=== PATIENT | male | born 1935 | race Caucasian/White ===

== ENCOUNTER 2018-10-18 18:12 | Inpatient (IN) | payer OTHER ==
[~2018-10-18] VITALS: Ht 175.3 cm; Wt 129.0 kg
[2018-10-18 18:14] VITALS: BP 178/73
[2018-10-18 18:40] LABS: ABSOLUTE NEUTROPHILS 10.2 thou/uL (1.4-8.2); BASOPHILS 0.7 % (0.0-2.0); EOSINOPHILS 3.1 % (0.0-3.0); HEMATOCRIT 31.1 % (42.0-52.0); HEMOGLOBIN 10.5 gm/dL (14.0-18.0); LYMPHOCYTES 10.4 % (24.0-44.0); MCH 33.4 pg (26.0-34.0); MCHC 33.8 g/dL (28.0-37.0); MCV 98.9 fL (80.0-100.0); MONOCYTES 10.1 % (1.0-8.0); POLYS 75.7 % (36.0-66.0); RBC 3.15 mil/uL (4.50-6.00); RDW 14.4 % (10.5-14.5); WBC 17.9 thou/uL (4.0-11.0)
[2018-10-18] MEDS ORDERED: TYLENOL325 MG PO (18:40)
[2018-10-18] MEDS ORDERED: ASPIR 8181 MG PO (18:41)
[2018-10-18] MEDS ORDERED: BENADRYL ITCH28.3 GM TOP (18:41)
[2018-10-18] MEDS ORDERED: TUMS PO (18:41)
[2018-10-18] MEDS ORDERED: SYNTHROID100 MC1 PO (18:42)
[2018-10-18] MEDS ORDERED: RENVELA800 MG PO (18:42)
[2018-10-18] MEDS ORDERED: LASIX 80 MG TAB80 MG PO (18:42)
[2018-10-18] MEDS ORDERED: LANTUS SUBQ (18:42)
[2018-10-18] MEDS ORDERED: MIRALAX17 GM PO (18:42)
[2018-10-18] MEDS ORDERED: GABAPENTIN 100100 MG PO (18:42)
[2018-10-18] MEDS ORDERED: MIDODRINE HCL10 MG PO (18:42)
[2018-10-18] MEDS ORDERED: SENSIPAR 30 MG30 MG PO (18:43)
[2018-10-18] MEDS ORDERED: DOXYCYCLINE 10100 M1 PO (18:43)
[2018-10-18 19:02] LABS: APTT 23.8 Seconds (24.5-32.8); PROTIME 10.9 Seconds (9.3-11.4)
[2018-10-18 19:03] LABS: PLATELET COUNT 232 thou/uL (150-400)
[2018-10-18 19:49] VITALS: BP 146/78
[2018-10-18 20:08] LABS: CALCIUM 8.9 mg/dL (8.5-10.1); CREATININE 11.3 mg/dL (0.7-1.3); POTASSIUM 5.7 mmol/L (3.5-5.1)
[2018-10-18 20:17] LABS: ALBUMIN 3.1 g/dL (3.4-5.0); MAGNESIUM 2.4 mg/dL (1.8-2.4); TOTAL BILIRUBIN 0.3 mg/dL (<0.1-1.0); TOTAL PROTEIN 7.5 g/dL (6.4-8.2); TROPONIN-I 0.53 ng/mL (<0.06)
--- NOTE | 2018-10-18 20:17 | EKG ---
[place] [address] [facility] [place] [address] ELECTROCARDIOGRAM REPORT Name: MAIA OLMEDO Room #: REG LEANDER Jain#: [id number] Admission: 10/18/18 Attend Phys: Discharge: Date of : 37 Report #: [id number] THIS REPORT FOR: //name// [facility] ED Test Date: 2018-10-18 Test Time: 18:39:54 Pat Name: MAIA OLMEDO Department: Room: Gender: M Almond Huller: hoa : 1935 Requested By: Ck Graham Order Number: [id number] MD: Colby Medina Measurements Intervals [place] Rate: 88 P: 229 MD: 206 QRS: -50 QRSD: 163 T: 120 QT: 408 QTc: 494 Interpretive Statements Sinus or ectopic atrial rhythm Left bundle branch block No previous ECG available for comparison Electronically Signed On 10-18-2018 20:17:05 RELIGIOUS EDUCATION TEACHER by Colby Medina [email or web address] <ELECTRONICALLY SIGNED> By: Colby Medina MD 10/18/182016 1839 1839 Colby Medina MD /JOSHUA
--- NOTE | 2018-10-18 20:24 | NUR ---
PHYSICIAN AT BEDSIDE FOR RE-EVALUATION
[2018-10-18 21:12] VITALS: BP 142/67
[2018-10-18 21:31] VITALS: BP 131/62
[2018-10-19] VITALS (7 sets, daily range): BP systolic 107–172; BP diastolic 32–84
[2018-10-19 00:32] LABS: HEMATOCRIT 26.5 % (42.0-52.0); MCH 33.6 pg (26.0-34.0); MCHC 34.1 g/dL (28.0-37.0); MCV 98.7 fL (80.0-100.0); RBC 2.68 mil/uL (4.50-6.00); RDW 14.3 % (10.5-14.5)
[2018-10-19 00:50] LABS: CALCIUM 8.3 mg/dL (8.5-10.1); CREATININE 11.4 mg/dL (0.7-1.3); MAGNESIUM 2.5 mg/dL (1.8-2.4)
[2018-10-19 00:52] LABS: POTASSIUM 6.2 mmol/L (3.5-5.1)
[2018-10-19 03:55] LABS: URINE COLOR YELLOW
[2018-10-19 03:56] LABS: URINE CLARITY HAZY; URINE PROTEIN (DIPSTICK) 2+ (Negative)
[2018-10-19 03:57] LABS: URINE BILIRUBIN NEGATIVE (Negative); URINE BLOOD 2+ (Negative); URINE GLUCOSE-RANDOM* 1+ (Negative); URINE KETONES NEGATIVE (Negative); URINE LEUKOCYTES-REFLEX 3+ (Negative); URINE NITRITE-REFLEX NEGATIVE (Negative); URINE UROBILINOGEN 0.2 E.U./dl (0.2-1.0)
[2018-10-19 04:00] LABS: SQUAMOUS 4-10 Moderate /LPF (0-3)
[2018-10-19 04:01] LABS: BACTERIA-REFLEX >30 Many /HPF (None Seen); CASTS None Seen /LPF (None Seen); CRYSTALS None Seen /LPF (None Seen); MUCUS 0-3 Light strn/LPF (None Seen); URINE RBC 3-10 Few /HPF (0-2); URINE WBC-REFLEX >25 Many /HPF (0-5); WBC CLUMPS Packed (None Seen)
--- NOTE | 2018-10-19 09:12 | NUR ---
ASSUME CARE 1900. PT/VITALS STABLE. DENIES ANY PAIN. POOR TOLERANCE TO ACTIVITY. INCONTINET OF URINE. FORGETFUL AND VERY PPOOR HISTORIAN. ASSESSMENT CHARTED. PROGRESSING MODERATELY WITH POC. SR ON MONITOR. STRAIGHT CATH PATIENT FOR URINE SAMPLE. URINE EXTREMELY CLOUDY AND AND MILK LOOKING. THICK YELLOW SPOUTUM NOTED WITH GOOD COUGH EFFORT. PLAN IS CONTINUE TO TREAT WITH ABX AND BREATHING TX. CONTINUE DIALYSIS AND DIURESING PT. WILL CONTINUE TO MONITOR AND FOLLOW WITH POC
--- NOTE | 2018-10-19 14:56 | 2DMMODE ---
[facility] [address] [place] [address] 2 D/M-MODE ECHOCARDIOGRAM Name: MAIA OLMEDO Room #: 201-P ADM IN M.R.#: [id number] Admission: 10/18/18 Attend Phys: Holland Castillo MD Discharge: Date of : 37 Date of Service: 10/19/18 1456 Report #: [id number] THIS REPORT FOR: //name// APPROVED REPORT Study performed: 10/19/2018 11:10:19 EXAM: Comprehensive 2D, Doppler, and color-flow Echocardiogram Patient Location: Bedside Room #: 201 Status: routine BSA: 2.36 HR: 75 bpm BP: 150/71 mmHg Rhythm: NSR Other Information Study Quality: Adequate Indications Congestive Heart Failure Diabetes Dyspnea Elevated Troponin Hypertension/HDD TAVR Echo Enhancing Agent Indication: Endocardial border delineation Agent(s) / Amount(s) Used: Optison 3 cc 2D Dimensions RVDd: 45.80 mm IVSd: 12.63 (7-11mm) LVOT Diam: 21.59 (18-24mm) LVDd: 59.37 mm PWd: 13.82 (7-11mm) Ascending Ao: 40.81 (22-36mm) LVDs: 50.81 (25-40mm) Aortic Root: 36.38 mm IVC: 30.00 mm Volumes Left Atrial Volume (Systole) Single Plane 4CH: 77.68 mL Aortic Valve AoV Peak Lester.: 3.63 m/s AO Peak Gr.: 52.62 mmHg LVOT Max P.82 mmHg [facility] [address] [place] [address] 2 D/M-MODE ECHOCARDIOGRAM Name: MAIA OLMEDO Room #: 201-P ADM IN M.R.#: [id number] Admission: 10/18/18 Attend Phys: Holland Castillo MD Discharge: Date of : 37 Date of Service: 10/19/18 1456 Report #: [id number] Mean Gr.: 30.00 mmHg LVOT Mean P.78 mmHg AO V2 Mean: 2.59 m/s LVOT Max V: 0.98 m/s AO V2 VTI: 83.61 cm LVOT Mean V: 0.61 m/s HARSHA (VTI): 0.97 cm2 LVOT V1 VTI: 22.14 cm HARSHA Vmax: 0.99 cm2 SV (LVOT): 81.04 mL Mitral Valve E/A Ratio: 0.7 MV Decel. Time: 122.04 ms MV E Max Lester.: 1.12 m/s MV A Lester.: 1.72 m/s MV PHT: 35.39 ms IVRT: 124.57 ms Pulmonary Valve PV Peak Lester.: 0.92 m/s PV Peak Gr.: 3.43 mmHg Pulmonary Vein P Vein S: 0.40 m/s P Vein A: 0.34 m/s P Vein D: 0.31 m/s P Vein A Dur.: 152.2 msec P Vein S/D Ratio: 1.29 Tricuspid Valve TR Peak Lester.: 3.89 m/s TR Peak Gr.: 60.59 mmHg PA Pressure: 70.00 mmHg Left Ventricle Left ventricle is dilated. There is global hypokinesis of the left ventricle. Mild concentric left ventricular hypertrophy. Left ventricular ejection fraction is moderately decreased. LVEF is 30-35%. Grade I - abnormal relaxation pattern. Right Ventricle Right ventricle is dilated. Right ventricle is hypokinetic. Atria Left atrium is dilated. Right atrium is dilated. Aortic Valve TAVR No aortic regurgitation is present. Moderate aortic stenosis. Mitral Valve The mitral valve is normal in structure. There is no mitral valve regurgitation [facility] [address] [place] [address] 2 D/M-MODE ECHOCARDIOGRAM Name: MAIA OLMEDO Room #: 201-P ADM IN M.R.#: [id number] Admission: 10/18/18 Attend Phys: Holland Castillo MD Discharge: Date of : 37 Date of Service: 10/19/18 1456 Report #: [id number] noted. No evidence of mitral valve stenosis. Tricuspid Valve The tricuspid valve is normal in structure. There is mild tricuspid regurgitation. Estimated PAP 70 mmHg. There is severe pulmonary hypertension. Pulmonic Valve The pulmonary valve is normal in structure. Trace pulmonic regurgitation. Great Vessels The aortic root is normal in size. IVC is dilated and collapses <50% with inspiration. Pericardium There is no pericardial effusion. <Conclusion> Left ventricle is dilated. There is global hypokinesis with segmental regions of more prominent wall motion abnormalities of the left ventricle. LVEF is 30-35%. Right ventricle is dilated. Right ventricle is hypokinetic. Left atrium is dilated. Right atrium is dilated. TAVR Moderate aortic stenosis. The mitral valve is normal in structure. The tricuspid valve is normal in structure. There is mild tricuspid regurgitation. Estimated PAP 70 mmHg. There is severe pulmonary hypertension. The pulmonary valve is normal in structure. Trace pulmonic regurgitation. There is no pericardial effusion. <ELECTRONICALLY SIGNED> By: Timur Fletcher MD 10/19/18 1456 1456 1456 Timur Fletcher MD /INF
--- NOTE | 2018-10-19 15:32 | NUR ---
met with patient who is A/Ox4. He resides ltc at [facility]. Plan return once stable. He dializes at [facility] located in [facility]. He does not wear oxygen but currently rec. Patient reports son in [place] and sister emergency contact. He reports they are aware he is in hospital. Plan to update [facility].
--- NOTE | 2018-10-19 20:33 | NUR ---
ASSUMED CARE OF PT AT 0700. PT A&OX4, BEDREST. USES WHEELCHAIR AT HOME. VITALS WNL WITH EXCEPTION ON ONE TIME HIGH BLOOD PRESSURE. PT IS SINUS RHYTHM ON TELEMETRY WITH 1D, BBB. PT OXYGEN TITRATED TO 1L AND PT SATS >90%. PT HAS CRACKLES IN BASES OF LUNGS AND PUT ON 2000ML FLUID RESTRICTION BY CARDIOLOGY. PT HAD DIALYSIS TODAY AND STATED HE DID'T FEEL WELL BUT COULD NOT STATE IF HE HAD PAIN OR NAUSEA. PT STATED HE ALWAYS FEELS BAD AFTER DIALYSIS. WILL CONT WITH POC.
[2018-10-20 03:55] VITALS: BP 103/69
--- NOTE | 2018-10-20 05:07 | NUR ---
PT. SHAKING; FACE FLUSHED; C/O GENERAL MALAISE; VS WNL; POST DIALYSIS; BG 155; HR BETWEEN 60-100; ST. IT IS A REGULAR REACTION POST DIALYSIS; ABLE TO TAKE MEDICATION; REPOSITIONED; MONITOR Q1H; AFTER MIDNIGHT PT. ABLE TO REST WITH EYES CLOSED; AT 3:[address] "I AM FEELING SO MUCH BETTER"; REQUESTED PRN PAIN MEDICATION DUE TO HEADACHE; RE-POSITIONED; POST-ASSESSMENT PT SLEEPING; ASSESSMENT CHARGED; FOLLOWING POC. REFUSED O2 DURING THE NIGHT. .
[2018-10-20 06:59] VITALS: BP 119/78
[2018-10-20 08:42] LABS: CALCIUM 8.7 mg/dL (8.5-10.1); PHOSPHORUS 5.8 mg/dL (2.5-4.9); POTASSIUM 5.4 mmol/L (3.5-5.1)
[2018-10-20 08:43] LABS: CREATININE 7.4 mg/dL (0.7-1.3)
[2018-10-20 11:04] VITALS: BP 140/54
--- NOTE | 2018-10-20 13:24 | NUR ---
PT. RESIDES AT [facility]. FAXED CLINICAL UPDATE TO FACILITY AND SPOKE WITH WILBERT IN ADM. SHE RECEIVED UPDATE. DCP TO FOLLOW.
[2018-10-20 15:34] VITALS: BP 122/75
--- NOTE | 2018-10-20 16:58 | NUR ---
ASSESSMENT CHARTED - MEDS PER NOV - PT WITH CO'S OF UPSET STOMACH - GIVEN ZOFRAN PO. PT AMY DIET AND FLUIDS. PT HAS RESTING IN BED FOR THE DAY. INCONTINENT OF STOOL IN BED DUE TO NOT WANTING TO SIT ON THE BEDPAN. CHECKED WITH MED RECORDS AT 1530 - REQUESTED INFORMATION FROM [facility] STILL NOT ARRIVED. PT TO HAVE DILAYSIS IN THE AM. NO CO'S OF PAIN - APPEARS TO BE RESTING COMFORTABLY AT THE PRESENT TIME.
[2018-10-20 20:15] VITALS: BP 119/48
[2018-10-21 04:55] VITALS: BP 126/71
[2018-10-21 05:24] LABS: HEMATOCRIT 30.1 % (42.0-52.0); MCH 33.1 pg (26.0-34.0); MCHC 33.3 g/dL (28.0-37.0); MCV 99.3 fL (80.0-100.0); RBC 3.03 mil/uL (4.50-6.00); RDW 14.6 % (10.5-14.5); WBC 10.5 thou/uL (4.0-11.0)
[2018-10-21 05:39] LABS: CALCIUM 8.3 mg/dL (8.5-10.1); MAGNESIUM 2.6 mg/dL (1.8-2.4)
[2018-10-21 06:01] LABS: CREATININE 9.3 mg/dL (0.7-1.3)
[2018-10-21 06:05] LABS: POTASSIUM 7.3 mmol/L (3.5-5.1); TROPONIN-I 6.84 ng/mL (<0.06)
--- NOTE | 2018-10-21 07:52 | NUR ---
PT. AOX4 DURING THE NIGHT; C/O N/V/ PAIN OVER HANDS AND SOME GI REFLUX; HX OF ARTHRITIS; MATERIAL ASSISTANT NOTIFIED; ORDERS TAKEN; LOOSE BMX2 THROUGH THE NIGHT; NOT ABLE TO CONTROL IT; MATERIAL ASSISTANT NOTIFIED; PROTOCOL FOLLOWED; STOOL SAMPLE TAKEN; CONTACT ISOLATION ON PLACE. TROPONIN AND POTASSIUM ELEVATED; MATERIAL ASSISTANT NOTIFIED; MONITORING; ABLE TO REST A FEW HOURS DURING THE NIGHT; PASSED ON REPORT; ASSESSMENT CHARGED; FOLLOWING POC;
[2018-10-21 07:57] VITALS: BP 110/59
[2018-10-21 12:20] VITALS: BP 135/70
--- NOTE | 2018-10-21 17:12 | NUR ---
ASSESSMENT CHARTED - MEDS PER NOV - NO CO'S OF PAIN OR NAUSEA. AMY DIET AND FLUIDS. PT WITH LARGE LIQUID BM - FILLED ENTIRE BED- PATIENT UNABLE TO TELL THAT HE HAD MOVED HIS BOWELS. ACCUCHECKS CHARTED - PT WITH ELEVATED K+ THIS AM - GIVEN GLUCOSE/ INUSLIN ORDERED. DIALYSIS TODAY 3 LITRES REMOVED. NO CO'S AT THE PRESENT TIME.
[2018-10-21 17:45] VITALS: BP 154/104
[2018-10-21 19:26] VITALS: BP 102/46
--- NOTE | 2018-10-22 04:10 | NUR ---
ASSUMED CARE OF PATIENT AROUND 1900. PATIENT ORIENTED TO PERSON AND TIME AND IS FORGETFUL. PATIENT WANTING STAFF TO DO SMALL TASKS FOR HIM, EDUCATED PATIENT ON HIS ABILITIES AND EXPECTATIONS THAT HE ATTEMPTS TO DO MUCH FOR HIMSELF HE CAN AND THAT STAFF IS HERE TO ASSIST IF NEEDED, NOT FOR CHANGING THE CHANNEL WHEN PATIENT IS CAPABLE. PATIENT HAD LOOSE STOOL IN BED. PATIENT CLEANED UP. C/O WHEEZING. ASSESSMENT DID NOT REVEAL ANY WHEEZING. O2 SAT WNL. HAD PATIENT COUGH AND DEEP BREATHE. PATIENT REPORTS FEELING THAT WHEEZING HAS CLEARED UP. -CDIFF RESULTS NOTED. PATIENT IS PROGRESSING TOWARD GOALS, WILL CONTINUE TO MONITOR.
[2018-10-22 05:10] VITALS: BP 110/50; BP 140/81
[2018-10-22 05:43] LABS: CALCIUM 8.6 mg/dL (8.5-10.1); MAGNESIUM 2.5 mg/dL (1.8-2.4)
[2018-10-22 05:52] LABS: CREATININE 6.3 mg/dL (0.7-1.3); POTASSIUM 4.5 mmol/L (3.5-5.1)
[2018-10-22 07:05] VITALS: BP 111/68
[2018-10-22 11:10] VITALS: BP 117/60
[2018-10-22 15:45] VITALS: BP 114/58
--- NOTE | 2018-10-22 16:55 | NUR ---
ASSESSMENT CHARTED - MEDS PER NOV - GIVEN TYLENOL FOR CO'S OF PAIN IN HANDS THIS AFTERNOON. AMY DIET AND FLUIDS. ACCUCHECKS CHARTED - NO CO'S OF NAUSEA. PT WITH 1 MOD LIQUID STOOL THIS AM IN THE BEDPAN. PT TO HAVE CHEST XRAY IN THE AM - BARRIER CREAM APPLIED TO BUTTOCKS AND PATIENT ENCOURAGED TO KEEP TURNED DID LAY ON SIDE FOR A SHORT WHILE AND HAS OTHERWISE REFUSED. NO CO'S AT THE PRESENT TIME.
[2018-10-22 20:15] VITALS: BP 103/47
--- NOTE | 2018-10-23 04:39 | NUR ---
ASSUMED OT CARE AT 190O. VSS. PT A&0X4. ASSESSMENTS AND MEDS GIVEN ARE DOCUMENTED. PT'S MAJOR COMPLAINTS TONIGHT WERE HIS COUGH AND THE ARTHRITIC PAIN IN HIS HANDS. PRN COUGH MED AND TYLENOL GIVEN RESPECTIVELY. PT IS STABLE, NO FURTHER COMPLAINTS, NEITHER WAS IN IN ANY APPARENT DISTRESS AT ANY POINT DURING THE NIGHT. WILL CONTINUE TO MONITOR PER POC.
[2018-10-23 04:45] VITALS: BP 110/54; BP 152/83
[2018-10-23 05:58] LABS: ALBUMIN 2.7 g/dL (3.4-5.0); CALCIUM 8.2 mg/dL (8.5-10.1); PHOSPHORUS 8.9 mg/dL (2.5-4.9); POTASSIUM 4.9 mmol/L (3.5-5.1)
[2018-10-23 05:59] LABS: CREATININE 8.6 mg/dL (0.7-1.3)
[2018-10-23 07:15] VITALS: BP 133/69
--- NOTE | 2018-10-23 10:36 | NUR ---
PATIENT HAS STAYED IN BED THROUGH THE MORNING. USES BEDPAN FOR B/BLADDER. HE DENIES PAIN AT THIS TIME STATING MEDS GIVEN THIS AM FOR PAIN WAS EFFECTIVE. RESPIRATION NON LABORED. WILL HAVE DIALYSIS TOMORROW. WILL CONT WITH PLAN OF CARE.
[2018-10-23 11:25] VITALS: BP 136/65
[2018-10-23 15:35] VITALS: BP 134/65
[2018-10-23 19:22] VITALS: BP 125/53
--- NOTE | 2018-10-24 03:36 | NUR ---
PT ALERT AND ORIENTED. DENIES SOB, OR CHEST PAIN. C/O OF ARTHRITIC PAIN IN BOTH HANDS, ALLEVIATED WITH TYLENOL. PRODUCTIVE COUGH , WITH WHEEZING NOTED. RECEIVING BREATHING TREATMENTS. IV LEFT HAND REMOVED DUE TO LEAKAGE. INCONTINENT OF BM, NO DIARRHEA. WILL CONTINUE TO FOLLOW POC.
[2018-10-24 06:27] VITALS: BP 146/67
[2018-10-24 08:12] VITALS: BP 141/64
[2018-10-24 08:40] VITALS: BP 146/67
--- NOTE | 2018-10-24 10:21 | NUR ---
Assess due to high BMI. Pt from care home care. Currently on dialysis, sleeping. Hx noncompliance with diet, medications. Has renal diet order. BMI 42 extreme class III obesity. Ate well. Available if pt with diet questions, otherwise low nutrition risk
[2018-10-24] MEDS ORDERED: IPRAT-ALBUT 0.5-3 ML INH (11:25)
[2018-10-24] MEDS ORDERED: NOVOLOG100 UNIT/1 SUBQ (11:25)
[2018-10-24] MEDS ORDERED: CALTRATE-600 W1 EACH PO (11:25)
[2018-10-24] MEDS ORDERED: CARVEDILOL12.5 MG PO (11:25)
[2018-10-24] MEDS ORDERED: LEVAQUIN 500 M500 M1 PO (11:25)
[2018-10-24] MEDS ORDERED: LOPERAMIDE 2 MG2 M1 PO (11:25)
[2018-10-24] MEDS ORDERED: BENZONATATE100 MG PO (11:25)
[2018-10-24] MEDS ORDERED: CEPACOL SORE T1 EAC7 PO (11:25)
--- NOTE | 2018-10-24 13:15 | NUR ---
PT. DISCHARGING TODAY TO [facility]. FAXED DC ORDERS/SUMMARY TO FACILITY AND SPOKE WITH WILBERT IN ADM. SHE RECEIVED DC ORDERS. SHE ARRANGED TRANSPORTATION VIA [facility] FOR [id number]. PT. NOTIFIEID OF TIME OF TRANSPORT. UNIT NOTIFIED AND CHART COPY PER US. RN TO CALL REPORT TO [phone].
--- NOTE | 2018-10-26 09:41 | HC ---
[facility] [place] [address] [place] [address] CONSULTATION Name: MAIA OLMEDO Room #: 201-P [facility] IN M.R.#: [id number] Admission: 10/18/18 Attend Phys: Holland Castillo MD Discharge: 10/24/18 Date of : 37 Report #: [id number] THIS REPORT FOR: //name// CC: Nicole Castillo REASON FOR CONSULTATION: End-stage renal disease. REASON FOR PRESENTATION: Shortness of breath and fever. HISTORY OF PRESENT ILLNESS: An 83-year-old with past medical history of end-stage renal disease, used to go to [facility]. He is not really sure what caused his kidney problems. He is known to have hypertension. He is also known to have diabetes. He has been maintained on dialysis every Wednesday, Wednesday and Wednesday utilizing a right AV fistula. He resides at a nursing facility. He reported to productive cough and body aches along with fever reported in his nursing facility. No previous similar episodes. No fever during his hospital stay here. He had some vascular congestion on his chest x-ray and is supposed to be dialyzing today. I am being consulted to manage his end-stage renal disease. He missed his dialysis on Wednesday. PAST MEDICAL HISTORY: 1. Diabetes mellitus. 2. Hypertension. 3. Valvular heart disease, post TAVR. 4. AV fistula. ALLERGIES: CEPHALEXIN, TETANUS AND DIPHTHERIA TOXOID. SOCIAL HISTORY: No drug or alcohol abuse. MEDICATIONS: 1. Aspirin. 2. Gabapentin. 3. Renvela. 4. Cinacalcet. 5. Levothyroxine. 6. Midodrine. REVIEW OF SYSTEMS: GENERAL: Significant for subjective fever. CHEST: Decreased air entry bilaterally with crackles. CARDIOVASCULAR: No rub. ABDOMEN: Soft, nontender. LOWER EXTREMITIES: +3 edema. LABORATORY DATA: Reviewed. Hemoglobin is 9, potassium was 6.[address] [facility] [address] [place] [address] CONSULTATION Name: MAIA OLMEDO Room #: 201-P [facility] IN [place].#: [id number] Admission: 10/18/18 Attend Phys: Holland Castillo MD Discharge: 10/24/18 Date of : 37 Report #: [id number] to 5.5. Chest x-ray with no acute changes. ASSESSMENT, IMPRESSION AND PLAN: 1. End-stage renal disease. 2. Leukocytosis. 3. Fever. 4. Post transcatheter aortic valve replacement procedure. 5. We will arrange for the patient to have his usual hemodialysis with aggressive ultrafiltration. 6. Resume his outpatient medications including his diabetes mellitus and hypertension medication. <ELECTRONICALLY SIGNED> By: Sudheer Garza MD 10/26/18 0941 0924 1049 Sudheer Garza MD /nt
== END 2018-10-24 15:25 | DRG 871 ==
LOC: ER 18:12 → 2N 20:30 → EROBS 20:30 → 2N 21:14
PROVIDERS: Emergency Medicine; Internal Medicine Nephrology; Nurse Practitioner Acute Care; Nurse Practitioner Adult Health; ADMIT Internal Medicine
PROC: 5A1D70Z Performance of Urinary Filtration, Intermittent, Less than 6 Hours Per Day (ICD-10-PCS; principal; 2018-10-19)
PROC: 5A1D70Z Performance of Urinary Filtration, Intermittent, Less than 6 Hours Per Day (ICD-10-PCS; 2018-10-21)
PROC: 5A1D70Z Performance of Urinary Filtration, Intermittent, Less than 6 Hours Per Day (ICD-10-PCS; 2018-10-24)
DX: A41.9 Sepsis, unspecified organism (principal); I50.43 Acute on chronic combined systolic (congestive) and diastolic (congestive) heart failure; I21.4 Non-ST elevation (NSTEMI) myocardial infarction; N18.6 End stage renal disease; J18.9 Pneumonia, unspecified organism; J96.01 Acute respiratory failure with hypoxia; I13.2 Hypertensive heart and chronic kidney disease with heart failure and with stage 5 chronic kidney disease, or end stage renal disease; N39.0 Urinary tract infection, site not specified; Z68.41 Body mass index [BMI] 40.0-44.9, adult; I42.0 Dilated cardiomyopathy; E87.5 Hyperkalemia; E11.22 Type 2 diabetes mellitus with diabetic chronic kidney disease; E03.9 Hypothyroidism, unspecified; E11.51 Type 2 diabetes mellitus with diabetic peripheral angiopathy without gangrene; E78.5 Hyperlipidemia, unspecified; E11.42 Type 2 diabetes mellitus with diabetic polyneuropathy; Z96.653 Presence of artificial knee joint, bilateral; D64.9 Anemia, unspecified; I77.1 Stricture of artery; I95.1 Orthostatic hypotension; E66.01 Morbid (severe) obesity due to excess calories; M62.84 Sarcopenia; E87.70 Fluid overload, unspecified; E88.9 Metabolic disorder, unspecified; Z99.3 Dependence on wheelchair; Z88.7 Allergy status to serum and vaccine; Z88.8 Allergy status to other drugs, medicaments and biological substances; Z90.49 Acquired absence of other specified parts of digestive tract; Z91.14 Patient's other noncompliance with medication regimen; Z82.49 Family history of ischemic heart disease and other diseases of the circulatory system
CPT/HCPCS: 10081; 32100

== ENCOUNTER 2018-10-31 01:08 | Inpatient (IN) | payer OTHER ==
[~2018-10-31] VITALS: Ht 177.8 cm; Wt 125.1 kg
[2018-10-31] VITALS (9 sets, daily range): BP systolic 108–169; BP diastolic 47–88
[~2018-10-31 01:08] MED LIST: ASPIR 8181 MG PO; BENADRYL ITCH28.3 GM TOP; BENZONATATE100 MG PO; CALTRATE-600 W1 EACH PO; CARVEDILOL12.5 MG PO; CEPACOL SORE T1 EAC7 PO; DOXYCYCLINE 10100 M1 PO; GABAPENTIN 100100 MG PO; IPRAT-ALBUT 0.5-3 ML INH; LANTUS SUBQ; LASIX 80 MG TAB80 MG PO; LEVAQUIN 500 M500 M1 PO; LOPERAMIDE 2 MG2 M1 PO; MIDODRINE HCL10 MG PO; MIRALAX17 GM PO; NOVOLOG100 UNIT/1 SUBQ; RENVELA800 MG PO; SENSIPAR 30 MG30 MG PO; SYNTHROID100 MC1 PO; TUMS PO; TYLENOL325 MG PO
[2018-10-31] MEDS ORDERED: BENADRYL ITCH28.3 GM (01:28)
[2018-10-31] MEDS ORDERED: CALCIUM ACETAT667 MG PO (01:30)
[2018-10-31] MEDS ORDERED: ROBITUSSIN100 MG/53 PO (01:32)
[2018-10-31 01:34] LABS: BE(vivo) -3.2 mmol/L (-2 to +3); HCO3 22.7 mmol/L (22.0-26.0); PCO2 44.5 mmHg (35.0-45.0); PO2 91.4 mmHg (80.0-100.0); pH 7.326 (7.360-7.450); sO2 96.4 % (92.0-98.0)
[2018-10-31] MEDS ORDERED: LIDOCAINE VISC100 ML (01:35)
[2018-10-31 01:38] LABS: ABSOLUTE NEUTROPHILS 15.3 thou/uL (1.4-8.2); BASOPHILS 0.5 % (0.0-2.0); EOSINOPHILS 2.6 % (0.0-3.0); HEMATOCRIT 32.3 % (42.0-52.0); HEMOGLOBIN 10.6 gm/dL (14.0-18.0); LYMPHOCYTES 7.5 % (24.0-44.0); MCH 32.9 pg (26.0-34.0); MCHC 32.9 g/dL (28.0-37.0); MONOCYTES 5.8 % (1.0-8.0); PLATELET COUNT 296 thou/uL (150-400); POLYS 83.6 % (36.0-66.0); RBC 3.23 mil/uL (4.50-6.00); WBC 18.3 thou/uL (4.0-11.0)
[2018-10-31] MEDS ORDERED: MURINE EAR DROP15 ML OTIC (01:38)
[2018-10-31 01:43] LABS: CALCIUM 9.7 mg/dL (8.5-10.1)
[2018-10-31 01:52] LABS: ALBUMIN 3.2 g/dL (3.4-5.0); TOTAL BILIRUBIN 0.5 mg/dL (<0.1-1.0); TOTAL PROTEIN 7.8 g/dL (6.4-8.2); TROPONIN-I 0.12 ng/mL (<0.06)
--- NOTE | 2018-10-31 02:08 | NUR ---
PT REMOVED DENTURES AND PLACED THEM IN LABLED CUP W/ BELONGINGS
[2018-10-31] MEDS ORDERED: DOXYCYCLINE 10100 MG PO (04:42)
--- NOTE | 2018-10-31 04:59 | NUR ---
PT ADMITED FROM ED AROUND 0300 SOA/PNA. VSS. ASSESSMENT CHARTED. PT DENIES ANY CONCERNS. BIPAP IN PLACE PER RT. ABX RUNNING PER EMAR. ESRD DIALYSIS M,W,F. WILL CONTINUE TO MONITOR AND WITH POC.
--- NOTE | 2018-10-31 08:44 | EKG ---
[address] [place] [address] ELECTROCARDIOGRAM REPORT Name: MAIA OLMEDO Room #: 215-P ADM IN M.R.#: [id number] Admission: 10/31/18 Attend Phys: Rosana Banerjee MD Discharge: Date of : 36 Report #: [id number] THIS REPORT FOR: //name// [facility] ED Test Date: 2018-10-31 Test Time: 01:16:08 Pat Name: MAIA OLMEDO Department: Room: 215 Gender: M Leather Flesher: BELINDA : 1935 Requested By: Natacha Hardwick Order Number: [id number] MD: George Ramirez Measurements Intervals [place] Rate: 100 P: DE: QRS: -32 QRSD: 165 T: 99 QT: 480 QTc: 620 Interpretive Statements Probable sinus tachycardia with first-degree AV block Left bundle branch block Compared to ECG 10/18/2018 18:39:54 No significant change was found Electronically Signed On 10-31-2018 8:44:48 UNIT EDUCATOR by George Ramirez [email or web address] <ELECTRONICALLY SIGNED> By: George Ramirez MD, [facility] 10/31/18 0844 0116 0116 George Ramirez MD, [facility] /EPI
--- NOTE | 2018-10-31 12:25 | NUR ---
ASSUMED PATIENT CARE THIS AM. PATIENT LYING IN BED, A&OX4. NC @ 2L. HEMODIALYSIS THIS AM. RIGHT ARM FISTULA. NO N/V STATED. ARTHRITIS PAIN STATED THIS AM, MANAGED WITH ORAL MEDICATION. TOLERATING DIET. ACCUCHECKS, ACHS. PATIENT VOIDS PER URINAL. WILL CONTINUE TO MONITOR.
--- NOTE | 2018-10-31 16:22 | NUR ---
PT. ADMITTED FROM [place] FAXED CLINICAL UPDATE TO FACILITY LEFT MSG WITH JONEL IN ADM. THAT UPDATE FAXED. DCP TO FOLLOW.
[2018-11-01 00:07] LABS: GLYCOHEMOGLOBIN (HGB A1C) 6.5 % (4.8-5.6)
[2018-11-01 03:21] VITALS: BP 112/43
[2018-11-01 03:43] LABS: ALBUMIN 2.8 g/dL (3.4-5.0); CALCIUM 8.7 mg/dL (8.5-10.1); POTASSIUM 4.9 mmol/L (3.5-5.1)
[2018-11-01 04:12] LABS: HEMATOCRIT 27.5 % (42.0-52.0); HEMOGLOBIN 9.6 gm/dL (14.0-18.0); MCH 33.9 pg (26.0-34.0); MCHC 34.8 g/dL (28.0-37.0); MCV 97.3 fL (80.0-100.0); RBC 2.83 mil/uL (4.50-6.00); RDW 14.4 % (10.5-14.5); WBC 10.4 thou/uL (4.0-11.0)
--- NOTE | 2018-11-01 06:09 | NUR ---
ASSUME CARE 1900. PT/VITALS STABLE. DENIES ANY PAIN. POOR TOLERANCE TO ACTIVITY. PT/OT EVAL AND TREATMENT. ASSESSMETN CHARTED. PROGRESSING WITH POC. PLAN IS TO CONTINUE WITH BREATHING TX AND ABX THERAPY. WILL CONTINUE TO MONITOR AND FOLLOW WITH POC
[2018-11-01 08:00] VITALS: BP 135/55; BP 180/82
--- NOTE | 2018-11-01 11:27 | HC ---
[facility] [address] [address] CONSULTATION Name: MAIA OLMEDO Room #: 215-P ADM IN M.R.#: [id number] Admission: 10/31/18 Attend Phys: Rosana Banerjee MD Discharge: Date of : 37 Report #: [id number] THIS REPORT FOR: //name// CC: Nicole Miranda Rosana Banerjee DATE OF SERVICE: 10/31/2018 ATTENDING PHYSICIAN: Dr. Horan. REASON FOR CONSULTATION: End-stage renal disease and shortness of air. HISTORY OF PRESENT ILLNESS: The patient is well known to our service, was discharged from this hospital 6 days ago. At that time, he was admitted with volume overload and then pneumonitis. He dialyzes at [facility] where he stays. The patient became increasingly short of air yesterday. He had not dialyzed for 2 days, and was due for dialysis today. He was diagnosed with pneumonia and possible volume overload and admitted here. PAST MEDICAL HISTORY: He has valvular heart disease, post-TAVR; history of diabetes; hypertension; and end-stage renal disease, has been on dialysis for close to a year. ALLERGIES: REPORTEDLY TO CEPHALEXIN AND TETANUS SHOT. SOCIAL HISTORY: Denies cigarettes or alcohol. CURRENT MEDICATIONS: As listed include aspirin 81 mg daily, PhosLo one with meals t.i.d., carvedilol 6.25 mg b.i.d., Sensipar 30 mg daily, midodrine 10 mg before dialysis, furosemide 80 mg daily, albuterol inhaler, Synthroid 100 mcg daily, Renvela 800 mg with meals t.i.d. FAMILY HISTORY: Noncontributory. REVIEW OF SYSTEMS: GENERAL: He has been feeling reasonably well. EYES: His vision is okay. ENT: Hearing okay, swallows okay. Denies mouth sores. ENDOCRINE: Positive for diabetes and thyroid disease. RESPIRATORY: Increasing shortness of air with some orthopnea. CARDIAC: No chest pain, angina or palpitations. GASTROINTESTINAL: No nausea, vomiting, diarrhea, bloody stools. GENITOURINARY: Makes very little urine. No dysuria, no hematuria. NEUROLOGIC: He is weak and walks with a walker. No seizure, syncope, or [facility] [address] [place] [address] CONSULTATION Name: MAIA OLMEDO Room #: [address] [place] [address] IN M.R.#: [id number] Admission: 10/31/18 Attend Phys: Rosana Banerjee MD Discharge: Date of : 37 Report #: [id number] stroke. MUSCULOSKELETAL: Denies arthritis. PHYSICAL EXAMINATION: GENERAL: This is a reasonably comfortable appearing gentleman, breathing with just 2 liters nasal cannula at the current time. SKIN: Unremarkable. SKELETAL: Shows him to be somewhat obese. HEENT: Extraocular movements are full. Vision intact. No scleral icterus. Hearing intact. Mucous membranes moist. Tongue, buccal mucosa benign. NECK: Supple, no carotid bruits. CHEST: Shows bilateral inspiratory rhonchi. HEART: Distant, but regular. ABDOMEN: Soft and nontender, but obese. EXTREMITIES: Show 1+ generalized peripheral edema. NEUROLOGIC: Grossly intact. LABORATORY DATA: Hemoglobin is 10.6, white count 18.3. No manual differential was performed. Platelets were 296. Sodium 138, potassium 5, chloride 97, bicarbonate 24, creatinine 9, BUN was 87. Despite him being a chronic dialysis patient, no phosphorus was ordered with his chemistries in the Emergency Room. Chest x-ray showed some patchy infiltrates. ASSESSMENT AND PLAN: 1. End-stage renal disease, in need of dialysis today. 2. Respiratory insufficiency, could be some pneumonitis. He has been recently treated with lots of antibiotics, could be just volume overload. He will undergo dialysis this morning on an acute basis with 3.2 liters fluid removal and we will recheck in the morning to see if he needs more dialysis again tomorrow. 3. History of transcatheter aortic valve replacement. 4. History of decreased left ventricular ejection fraction. <ELECTRONICALLY SIGNED> By: Phi Bennett MD 11/01/18 1127 0759 0859 Phi Bennett MD /nt
[2018-11-01 12:13] VITALS: BP 124/96
--- NOTE | 2018-11-01 14:05 | NUR ---
met with patient who is A/Ox4. Patient recently dc from [facility] 10/24. 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 Updated facility. He dializes MWF at [facility]. He reports his family is aware he is at [facility]. He does not use oxygen at [place]. He admits with PNA.
[2018-11-01 16:00] VITALS: BP 150/42
--- NOTE | 2018-11-01 17:56 | HC ---
[facility] [place] [address] CONSULTATION Name: MAIA OLMEDO Room #: 215-P ADM IN M.R.#: [id number] Admission: 10/31/18 Attend Phys: Rosana Banerjee MD Discharge: Date of : 37 Report #: [id number] THIS REPORT FOR: //name// CC: Nicole Miranda Rosana Banerjee DATE OF SERVICE: 10/31/2018 INFECTIOUS DISEASE CONSULTATION: REASON FOR CONSULTATION: I was asked to evaluate concerning pneumonia and dyspnea. HISTORY OF PRESENT ILLNESS: The patient is an 83-year-old with underlying history of end-stage renal disease and valvular heart disease. He was admitted approximately 10 days ago with congestive heart failure and pneumonia. Dismissed on Levaquin. He was doing reasonably well until early this morning when he became short of breath. He has had intermittent cough with clear sputum production. No hemoptysis. Had some substernal chest discomfort as well. He dialyzes 3 days a week. His day of dialysis would have been today. He has had no change in his diet. He denies any nausea or vomiting. He has had no choking with liquids or solids. He does report increased peripheral edema. The patient was otherwise a poor historian and that he could not recall his medications. Following admission, he was placed on 2 liters of oxygen per nasal cannula. He was given vancomycin and Zosyn. He has had no fever, chills or sweats reported. He did have a sweat early this morning prior to his arrival. REVIEW OF SYSTEMS: A 10-point review of systems is negative other than what is described above. ALLERGIES: CEPHALEXIN, TETANUS. MEDICATIONS: As noted on his MAR, which were reviewed, now on vancomycin and Zosyn. He was on Levaquin prior to his admission. PAST MEDICAL HISTORY: Valvular heart disease, post TAVR; congestive heart failure; hypertension; end-stage renal disease, dialysis via right upper extremity AV fistula; diabetes; hypothyroidism; lap band; bilateral total knee arthroplasties; right elbow surgery; cholecystectomy, peripheral vascular disease. FAMILY HISTORY: Noncontributory. SOCIAL HISTORY: Nonsmoker, no significant alcohol intake. [address] [address] CONSULTATION Name: MAIA OLMEDO Room #: 215-P [facility] IN M.R.#: [id number] Admission: 10/31/18 Attend Phys: Rosana Banerjee MD Discharge: Date of : 36 Report #: [id number] PHYSICAL EXAMINATION: GENERAL: Alert and cooperative, eating his lunch, sitting up in bed. EYES: Without scleral icterus. MOUTH: With dentures. NECK: Supple, with no thyromegaly or mass. No palpable adenopathy. SKIN: Without rash or decubitus. LUNGS: Decreased breath sounds bilaterally with no consolidation. HEART: Regular with crisp valve sounds. ABDOMEN: Obese, nontender, no hepatosplenomegaly or mass. GENITOURINARY: External genitalia unremarkable with no masses or lesions. Cranial nerves intact with no focal weakness. Strength in his upper and lower extremities was symmetric. He had generalized weakness in his legs, but was able to raise off the bed. He was able to sit up in bed with minimal assist. Sensation in his fingers and toes to touch were normal. LABORATORY STUDIES: Hemoglobin 10.6, WBC 18.3, platelet count 296,000. Sodium 138, potassium 5, bicarbonate 24, creatinine 9, AST 19, ALT 91. Lactate 1.2. From 10/19/2018, sputum showed Group B Streptococcus. Blood cultures are negative. Urine antigen negative for Legionella and strep pneumo. Chest x-ray showed scattered patchy interstitial infiltrates with evidence of edema and basilar infiltrates, greatest on the left. IMPRESSION: An 83-year-old with underlying diabetes, end-stage renal disease, valvular heart disease, presents now with bilateral infiltrates and hypoxia with change in condition, most likely pulmonary edema with possible component of healthcare-associated aspiration pneumonia. He seems to be doing reasonably well with his food at this point. Other consideration would be typical bacteria or atypical bacterial infection. This does seem less likely due to the fact that his urine antigens on 10/19/2018 were negative. He has underlying congestive heart failure, end-stage renal disease. He has leukocytosis, which will be followed. RECOMMENDATIONS: We will check viral respiratory panel and sputum culture. Continue with current antibiotic therapy, pending further studies. I have discussed with nursing at the bedside. <ELECTRONICALLY SIGNED> By: Ulices Grier MD 11/01/18 1756 [id number] 35 Ulices Grier MD /nt
[2018-11-01 19:41] VITALS: BP 124/52
[2018-11-02 04:03] LABS: ABSOLUTE NEUTROPHILS 7.9 thou/uL (1.4-8.2); BASOPHILS 0.3 % (0.0-2.0); EOSINOPHILS 4.3 % (0.0-3.0); HEMOGLOBIN 9.4 gm/dL (14.0-18.0); LYMPHOCYTES 7.6 % (24.0-44.0); MCH 33.4 pg (26.0-34.0); MCHC 33.5 g/dL (28.0-37.0); MCV 99.8 fL (80.0-100.0); MONOCYTES 10.5 % (1.0-8.0); PLATELET COUNT 227 thou/uL (150-400); POLYS 77.3 % (36.0-66.0); RDW 14.8 % (10.5-14.5); WBC 10.3 thou/uL (4.0-11.0)
[2018-11-02 04:04] LABS: CALCIUM 8.1 mg/dL (8.5-10.1); MAGNESIUM 2.5 mg/dL (1.8-2.4); POTASSIUM 5.1 mmol/L (3.5-5.1)
[2018-11-02 04:40] VITALS: BP 149/53
--- NOTE | 2018-11-02 07:53 | NUR ---
ASSUME CARE 1900. PT/VITALS STABLE. INTERMITTENT ATHRITIC PAIN. MODERATELY TOLERATES ACTIIVTY. ADEQUATE REST NOTED. ASSESSMENT CHARTED. PROGRESSING WELL WITH POC. PLAN IS TO CONTINUE TO TREAT INFECTION WITH ABX. WILL CONTINUE TO MONITOR AND FOLLOW WITH POC
[2018-11-02 08:04] VITALS: BP 144/72
--- NOTE | 2018-11-02 10:43 | NUR ---
Nutrition: pt admit with recurrent PNA. Seen due to high BMI 40.6, extreme class 3 obesity. Pt from LTC. Dialysis this am, sleeping. Noted hx of noncompliance with meds/diet. On renal Carb controlled diet. Tolerates po. Available for diet review if desired otherwise consider low nutrition risk.
[2018-11-02 12:25] VITALS: BP 119/62
[2018-11-02 14:08] VITALS: BP 108/48
[2018-11-02 17:35] VITALS: BP 123/58
[2018-11-02 19:34] VITALS: BP 131/59
--- NOTE | 2018-11-02 20:36 | NUR ---
ASSUMED CARE OF PT AT 0700. PT A&OX4, HAS NOT BEEN OUT OF BED. PT HAD DIALYSIS TODAY AND FELT WEAK AFTERWARDS. PT HAS PAIN IN HANDS THAT IS BEING MANAGED WITH TYLENOL. PT HAS REDNESS TO GROIN AND SCROTUM AND INTRADRY PLACED IN THESE FOLDS. PT MOVES IN BED AND ASKS FOR ASSISTANCE WITH PLACEMENT OF WEDGE. WILL CONT WITH POC
[2018-11-03 03:36] VITALS: BP 137/49
[2018-11-03 09:24] VITALS: BP 118/32
[2018-11-03 12:00] VITALS: BP 123/63
--- NOTE | 2018-11-03 16:10 | NUR ---
FAXED CLINICAL UPDATE TO [facility] AND SPOKE WITH JONEL IN ADM. SHE RECEIVED UPDATE AND NOTIFIED HER THAT POSS DC TOMORROW 11/04. DCP TO FOLLOW.
[2018-11-03 16:23] VITALS: BP 124/54
[2018-11-03 19:46] VITALS: BP 147/52
--- NOTE | 2018-11-04 02:44 | NUR ---
ASSESSMENT CHARTED. TRIED SEVERAL TIMES TO HAVE A BOWEL MOVEMENT, BUT NO MOVEMENT. MIRALAX ORDERED. PT SCHEDULED FOR MEMODIALYSIS AGAIN TODAY FOR 3.5 HOURS. PER DOCTOR'S NOTE, HE IS OK TO GO BACK TO RETIREMENT IF NEPHROLOGY SIGNS OFF.
[2018-11-04 04:16] VITALS: BP 151/66
[2018-11-04 04:34] LABS: CALCIUM 8.3 mg/dL (8.5-10.1); CREATININE 7.6 mg/dL (0.7-1.3); PHOSPHORUS 6.8 mg/dL (2.5-4.9)
[2018-11-04 08:00] VITALS: BP 119/59
--- NOTE | 2018-11-04 16:18 | NUR ---
DCP FAXED DIALYSIS FLOWSHEETS TO [facility] SPOKE WITH TARAH AND SHE RECEIVED FLOWSHEETS. DCP TO FAX DC ORDERS ON WEDNESDAY IF PT. DISCHARGED OVER THE WEEKEND TO DIALYSIS CLINIC.
--- NOTE | 2018-11-04 16:34 | NUR ---
IF PT. DISCHARGES OVER THE WEEKEND PLEASE FAX DC ORDERS/SUMMARY TO [facility] [phone] AND CALL REPORT TO [phone] AND THEY WILL SET UP TRANSPORTATION.
[2018-11-04 17:00] VITALS: BP 131/73
--- NOTE | 2018-11-04 18:31 | NUR ---
PT ALERT AND ORIENTED TIMES FOUR WITH BLUNTED AFFECT. VSS, 97%2L, SR ON TELE. C/O PAIN IN HANDS PRN PAIN MEDICATIONS GIVEN WITH SOME RELEIF. PT HD DIALYSIS TODAY WITH NO ISSUES. PT TOLERATES MEDS AND MEALS. PT SLOWLY PROGRESSING TOWRADS POC GOALS.
[2018-11-04 19:51] VITALS: BP 134/45
[2018-11-04 22:07] LABS: ADENOVIRUS Negative (Negative); INFLUENZA A Negative (Negative); INFLUENZA B Negative (Negative); METAPNEUMOVIRUS Negative (Negative); PARAINFLUENZA 1 Negative (Negative); PARAINFLUENZA 2 Negative (Negative); PARAINFLUENZA 3 Negative (Negative); RHINOVIRUS Negative (Negative); RSV A Negative (Negative); RSV B Negative (Negative)
--- NOTE | 2018-11-04 23:23 | NUR ---
2000 - PT LAYING IN BED IN NAD. C/O PAIN IN RIGHT HAND PER REPORT. WILL TREAT WITH [facility] IT BECOMES AVAILABLE. DENIES OTHER NEEDS AND REQUESTS.
[2018-11-05 04:29] VITALS: BP 115/61
[2018-11-05 08:30] VITALS: BP 98/54
[2018-11-05] MEDS ORDERED: AUGMENTIN 500-1 EACH PO (09:34)
[2018-11-05] MEDS ORDERED: COLACE 100 MG100 MG PO (09:34)
[2018-11-05 12:40] VITALS: BP 86/52
--- NOTE | 2018-11-05 13:10 | NUR ---
PT ALERT AND ORIENTED X4. DIALYSIS THIS AM. ORDER TO DISCHARGE BACK TO [facility]. REPORT CALLED TO [facility]. DISCHARGE INSTRUCTIONS AND PRESCRIPTIONS FAXED TO [facility] AT [facility]. [facility] TO TRANSPORT. IV DISCONTINUED. PT PHONE, DENTURES, AND GLASSES WITH PATIENT ON DISCHARGE.
--- NOTE | 2018-11-07 10:42 | NUR ---
PT. DISCHARGED SUNDAY 11/05 TO [facility]. DCP FAXED DC ORDERS TO [facility]. LEFT MSG WITH ADM. LIASON OF PT'S DISCHARGE.
== END 2018-11-05 13:45 | DRG 871 ==
LOC: ER 01:08 → 2N 02:07 → EROBS 02:07 → 2N 03:07
PROVIDERS: Internal Medicine; Internal Medicine Nephrology; Nurse Practitioner Family; Specialist; Student in an Organized Health Care Education/Training Program; ADMIT Internal Medicine
PROC: 5A1D70Z Performance of Urinary Filtration, Intermittent, Less than 6 Hours Per Day (ICD-10-PCS; principal; 2018-10-31)
PROC: 5A09357 Assistance with Respiratory Ventilation, Less than 24 Consecutive Hours, Continuous Positive Airway Pressure (ICD-10-PCS; principal; 2018-10-31)
PROC: 5A1D70Z Performance of Urinary Filtration, Intermittent, Less than 6 Hours Per Day (ICD-10-PCS; 2018-11-02)
PROC: 5A1D70Z Performance of Urinary Filtration, Intermittent, Less than 6 Hours Per Day (ICD-10-PCS; 2018-11-03)
PROC: 5A1D70Z Performance of Urinary Filtration, Intermittent, Less than 6 Hours Per Day (ICD-10-PCS; 2018-11-04)
PROC: 5A1D70Z Performance of Urinary Filtration, Intermittent, Less than 6 Hours Per Day (ICD-10-PCS; 2018-11-05)
DX: A41.9 Sepsis, unspecified organism (principal); J18.9 Pneumonia, unspecified organism; N18.6 End stage renal disease; J96.01 Acute respiratory failure with hypoxia; I50.43 Acute on chronic combined systolic (congestive) and diastolic (congestive) heart failure; I13.2 Hypertensive heart and chronic kidney disease with heart failure and with stage 5 chronic kidney disease, or end stage renal disease; I38 Endocarditis, valve unspecified; Z99.2 Dependence on renal dialysis; E11.22 Type 2 diabetes mellitus with diabetic chronic kidney disease; E03.9 Hypothyroidism, unspecified; E11.51 Type 2 diabetes mellitus with diabetic peripheral angiopathy without gangrene; Z96.653 Presence of artificial knee joint, bilateral; Y95 Nosocomial condition; E55.9 Vitamin D deficiency, unspecified; E66.01 Morbid (severe) obesity due to excess calories; D64.9 Anemia, unspecified; I35.0 Nonrheumatic aortic (valve) stenosis; E87.70 Fluid overload, unspecified; Z90.49 Acquired absence of other specified parts of digestive tract; Z88.7 Allergy status to serum and vaccine; Z88.8 Allergy status to other drugs, medicaments and biological substances; Z95.2 Presence of prosthetic heart valve; Z68.39 Body mass index [BMI] 39.0-39.9, adult; Z91.19 Patient's noncompliance with other medical treatment and regimen
CPT/HCPCS: 10081; 32100

== ENCOUNTER 2018-11-26 16:23 | Inpatient (IN) | payer OTHER ==
[~2018-11-26] VITALS: Ht 177.8 cm; Wt 119.7 kg
--- NOTE | ~2018-11-26 | HC ---
[facility] [place] [address] CONSULTATION Name: MAIA OLMEDO Room #: 428-P [facility] IN M.R.#: [id number] Admission: 11/27/18 ������������������ Attend Phys: Roman Howard MD Discharge: ������������������ Date of : 36 Report #: [id number] THIS REPORT FOR: //name// CC: [facility]UP physician/PCP Roman Howard DATE OF SERVICE: 11/27/2018 REASON FOR CONSULTATION: End-stage renal disease. REASON FOR THE PRESENTATION: Shortness of breath, fever and body aches. HISTORY OF PRESENT ILLNESS: An 83-year-old with past medical history of diabetes mellitus, hypertension, end-stage renal disease, who was maintained on hemodialysis. He dialyzes every Wednesday, Wednesday and Wednesday. I have taken care of him on numerous occasions. He has history of noncompliance with his fluid restriction. He presented from his nursing facility yesterday reporting cough, shortness of breath, and weakness. He also had some fever. Chest x-ray was suspicious for pneumonia. He was admitted and I am consulted to manage his end-stage renal disease and dialysis related issues. MEDICATIONS: 1. Augmentin. 2. Carvedilol. 3. Aspirin. 4. Gabapentin. 5. Sevelamer. 6. Insulin. 7. Levothyroxine. 8. Cinacalcet. PAST MEDICAL HISTORY: 1. Diabetes mellitus. 2. Hypertension. 3. End-stage renal disease, maintained on hemodialysis every Wednesday, Wednesday and Wednesday. 4. Status post AV fistula. 5. Post-TAVR at [facility]. 6. Noncompliance. 7. AV fistula. ALLERGIES: CEPHALEXIN AND TETANUS. SOCIAL HISTORY: He resides in [facility]. No drug or alcohol abuse. FAMILY HISTORY: Significant for hypertension. [facility] [address] [place] [address] CONSULTATION Name: MAIA OLMEDO Room #: 428-P [facility] IN M.R.#: [id number] Admission: 11/27/18 ������������������ Attend Phys: Roman Howard MD Discharge: ������������������ Date of : 36 Report #: [id number] REVIEW OF SYSTEMS: GENERAL: Significant for fever and chills. CARDIOVASCULAR: As per the history of present illness. PULMONARY: As per the history of present illness. GASTROINTESTINAL: No nausea or vomiting. GENITOURINARY: He still makes some urine. MUSCULOSKELETAL: No arthralgias, no back pain. NEUROLOGICAL: No headache, no dizziness. PHYSICAL EXAMINATION: GENERAL: He is alert, oriented, in no apparent distress. VITAL SIGNS: Temperature 36.9, pulse rate 70, blood pressure 122/56. HEAD AND NECK: No jugular venous distention, no bruit, no thyromegaly. CHEST: Decreased air entry bilaterally, minimal crackles. CARDIOVASCULAR: No rub. ABDOMEN: Soft, nontender. LOWER EXTREMITIES: Trace edema. LABORATORY DATA: Reviewed. Sodium is 133, potassium is 4.5. BUN is 78, creatinine is 8.4. White blood cell count was 14.1 yesterday. Urine culture and blood cultures are pending. Chest x-ray reviewed. Evidence of pulmonary edema, mild, left basilar infiltrates. ASSESSMENT, IMPRESSION, PLAN: 1. End-stage renal disease. 2. Pulmonary edema. 3. Leukocytosis. 4. Fever and shortness of breath. 5. Hypertension. 6. Noncompliance. 7. We will arrange for the patient to have his usual hemodialysis every Wednesday, Wednesday and Wednesday. 8. Continue with his dialysis related medications. 9. Appropriate antibiotic. 10. Follow cultures. 11. Counseling about fluid and salt restrictions. ��������������������������������������������� ���������������������������������������� By: ��������������������������������������������� 0835 10 Sudheer Garza MD /nt
[~2018-11-26 16:23] MED LIST changes: +AUGMENTIN 500-1 EACH PO; +BENADRYL ITCH28.3 GM; +CALCIUM ACETAT667 MG PO; +COLACE 100 MG100 MG PO; +DOXYCYCLINE 10100 MG PO; +LIDOCAINE VISC100 ML; +MURINE EAR DROP15 ML OTIC; +ROBITUSSIN100 MG/53 PO
[2018-11-26 16:26] VITALS: BP 150/74
[2018-11-26 20:24] LABS: ABSOLUTE NEUTROPHILS 11.3 thou/uL (1.4-8.2); BASOPHILS 0.5 % (0.0-2.0); EOSINOPHILS 2.9 % (0.0-3.0); HEMATOCRIT 31.1 % (42.0-52.0); HEMOGLOBIN 10.4 gm/dL (14.0-18.0); LYMPHOCYTES 7.9 % (24.0-44.0); MCH 32.9 pg (26.0-34.0); MCHC 33.5 g/dL (28.0-37.0); MCV 98.2 fL (80.0-100.0); MONOCYTES 8.7 % (1.0-8.0); PLATELET COUNT 251 thou/uL (150-400); RBC 3.16 mil/uL (4.50-6.00); RDW 14.5 % (10.5-14.5); WBC 14.1 thou/uL (4.0-11.0)
[2018-11-26 20:33] LABS: CALCIUM 9.5 mg/dL (8.5-10.1); CREATININE 7.7 mg/dL (0.7-1.3); POTASSIUM 4.4 mmol/L (3.5-5.1)
--- NOTE | 2018-11-26 22:33 | NUR ---
PT IS ATTEMPTING TO OBTAIN URINE SAMPLE, PT REFUSING STRAIGHT CATHETER FOR SAMPLE.
[2018-11-26 23:37] LABS: URINE BILIRUBIN NEGATIVE (Negative); URINE BLOOD 3+ (Negative); URINE CLARITY CLOUDY; URINE COLOR YELLOW; URINE GLUCOSE-RANDOM* TRACE (Negative); URINE KETONES NEGATIVE (Negative); URINE NITRITE-REFLEX NEGATIVE (Negative); URINE PROTEIN (DIPSTICK) 3+ (Negative); URINE UROBILINOGEN 0.2 E.U./dl (0.2-1.0)
[2018-11-26 23:45] LABS: URINE LEUKOCYTES-REFLEX 3+ (Negative)
[2018-11-26 23:53] LABS: BACTERIA-REFLEX >30 Many /HPF (None Seen); CASTS None Seen /LPF (None Seen); CRYSTALS None Seen /LPF (None Seen); MUCUS None Seen strn/LPF (None Seen); SQUAMOUS None Seen /LPF (0-3); URINE RBC >20 Many /HPF (0-2); URINE WBC-REFLEX >25 Many /HPF (0-5)
[2018-11-26 23:54] LABS: RENAL EPITHELIAL CELLS 0-3 Few /LPF (None Seen); TRANSITIONAL EPITHEL CELL 0-3 Few /LPF (None Seen)
[2018-11-27 01:22] VITALS: BP 149/70
[2018-11-27 04:30] VITALS: BP 122/56
[2018-11-27 06:37] LABS: HEMATOCRIT 31.9 % (42.0-52.0); HEMOGLOBIN 10.5 gm/dL (14.0-18.0); MCH 32.6 pg (26.0-34.0); MCHC 32.9 g/dL (28.0-37.0); MCV 99.1 fL (80.0-100.0); RBC 3.22 mil/uL (4.50-6.00); RDW 14.9 % (10.5-14.5); WBC 10.8 thou/uL (4.0-11.0)
[2018-11-27 06:54] LABS: CALCIUM 8.9 mg/dL (8.5-10.1); CREATININE 8.4 mg/dL (0.7-1.3); POTASSIUM 4.5 mmol/L (3.5-5.1)
--- NOTE | 2018-11-27 08:26 | NUR ---
PT ADMISSON COMPLETED. VSS. IV DRESSING C/D/I, NO SIGNS OF INFILTRATION. PRATEEK FISTULA- BRUIT AND THRILL PRESENT. IV ABX RUNNING. PT DENIES N/V. PT REPORTS PAIN IN HANDS, SEE EMAR. BARRIER ORIMENT TO BUTTOCK AREA ON ADMISSION. CONTINUE TO FOLLOW PLAN OF CARE. SHIFT REPORT GIVEN AT 0700.
[2018-11-27 08:35] VITALS: BP 124/58
[2018-11-27 17:20] LABS: BE(vivo) -3.3 mmol/L (-2 to +3); HCO3 20.5 mmol/L (22.0-26.0); PCO2 32.8 mmHg (35.0-45.0); PO2 77.5 mmHg (80.0-100.0); pH 7.414 (7.360-7.450); sO2 95.8 % (92.0-98.0)
[2018-11-27 17:30] VITALS: BP 122/52
--- NOTE | 2018-11-27 18:30 | NUR ---
PT ASSESSED THIS AM. DR. MORENO IN EARLY. NO DIALYSIS TODAY PER DR. HE FEELS IS MORE PNEUMONIA THAN FLUID. PT TURNED Q2HRS. CREAM TO BUTTOCKS. EATING AND DRINKING WELL. CONSULTS CALLED. NO C/O PAIN.
[2018-11-27 19:56] VITALS: BP 119/51
--- NOTE | 2018-11-28 04:03 | NUR ---
ASSUMED PT CARE 1899. PT ALERT AND ORIENTED. REASSESSMENT COMPLETE. VSS. PT REPORTS GENERALIZED ACHES. IV DRESSING C/D/I, NO SIGNS OF INFILTRATION. PT CALL LIGHT AND PERSONAL BELONINGS WITHIN REACH. WILL CONTINUE POC UNTIL EOS.
[2018-11-28 04:11] VITALS: BP 115/50
[2018-11-28 05:02] LABS: ABSOLUTE NEUTROPHILS 6.6 thou/uL (1.4-8.2); BASOPHILS 0.5 % (0.0-2.0); EOSINOPHILS 5.2 % (0.0-3.0); HEMATOCRIT 28.8 % (42.0-52.0); HEMOGLOBIN 9.6 gm/dL (14.0-18.0); LYMPHOCYTES 9.6 % (24.0-44.0); MCH 33.1 pg (26.0-34.0); MCHC 33.4 g/dL (28.0-37.0); MCV 99.1 fL (80.0-100.0); PLATELET COUNT 227 thou/uL (150-400); POLYS 74.7 % (36.0-66.0); RBC 2.91 mil/uL (4.50-6.00); RDW 14.4 % (10.5-14.5); WBC 8.9 thou/uL (4.0-11.0)
[2018-11-28 05:13] LABS: ALBUMIN 2.5 g/dL (3.4-5.0); CALCIUM 8.7 mg/dL (8.5-10.1); CREATININE 9.5 mg/dL (0.7-1.3); MAGNESIUM 2.3 mg/dL (1.8-2.4); POTASSIUM 4.7 mmol/L (3.5-5.1); TOTAL BILIRUBIN 0.5 mg/dL (<0.1-1.0); TOTAL PROTEIN 6.9 g/dL (6.4-8.2)
--- NOTE | 2018-11-28 11:09 | NUR ---
PT A&OX4, IV INTACT IN L FA. PT AT DIALYSIS AT THIS TIME. NAPROXIN GIVEN FOR GENERALIZED ORDERED. PT/OT AND ECHO ORDERED FOR TODAY, ANGIOGRAM ORDERED FOR TOMARROW, WILL PLACE PT NPO AFTER MN TONIGHT.
--- NOTE | 2018-11-28 13:17 | 2DMMODE ---
[facility] [address] [address] 2 D/M-MODE ECHOCARDIOGRAM Name: MAIA OLMEDO Room #: 428-P ADM IN M.R.#: [id number] ������������� Admission: 11/27/18 ������������� Attend Phys: Holland Castillo MD Discharge: ��� ������������� ��� Date of : 37 Date of Service: 11/28/18 1317 �� Report #: [id number] �������� ��������������������������������������������[id number] THIS REPORT FOR: //name// APPROVED REPORT Study performed: 11/28/2018 12:35:27 EXAM: Comprehensive 2D, Doppler, and color-flow Echocardiogram Patient Location: Bedside Room #: 428 Status: routine BSA: 2.33 HR: 64 bpm BP: 115/50 mmHg Rhythm: NSR Other Information Study Quality: Adequate Technically limited study due to morbid obesity, limited mobility. Indications Abbreviated for short of breath. Hx: TAVR, NSTEMI, cardiomyopathy (30-35% 10/19/18). 2D Dimensions LVDd: 62.80 mm LVDs: 53.36 (25-40mm) Aortic Valve AoV Peak Lester.: 3.41 m/s AO Peak Gr.: 46.60 mmHg AO Mean Gr.: 26.03 mmHg AO V2 Mean: 2.39 m/s AO V2 VTI: 74.84 cm Mitral Valve E/A Ratio: 0.6 MV Decel. Time: 427.35 ms MV E Max Lester.: 0.76 m/s MV A Lester.: 1.30 m/s MV PHT: 123.93 ms Tricuspid Valve TR Peak Lester.: 2.18 m/s RAP Estimate: 5.00 mmHg [facility] [address] [place] [address] 2 D/M-MODE ECHOCARDIOGRAM Name: MAIA OLMEDO Room #: 428-P ADM IN MJoann.#: [id number] ������������� Admission: 11/27/18 ������������� Attend Phys: Holland Castillo MD Discharge: ��� ������������� ��� Date of : 37 Date of Service: 11/28/18 1317 �� Report #: [id number] �������� ��������������������������������������������[id number] TR Peak Gr.: 19.02 mmHg PA Pressure: 24.00 mmHg Left Ventricle Left ventricle is dilated. Mild concentric left ventricular hypertrophy. LVEF is 45-50%. Mild diastolic dysfunction is present (impaired relaxation pattern). Right Ventricle Right ventricle is dilated. The right ventricular systolic function is low normal. Atria Left atrium is dilated. Right atrium is dilated. Aortic Valve History of TAVR. Peak gradient of 47mmHg and a mean gradient of 26mmHg. No aortic regurgitation is present. Mitral Valve There is mitral annular calcification. There is no mitral valve regurgitation noted. Tricuspid Valve The tricuspid valve is normal in structure. Trace tricuspid regurgitation. Estimated PAP is 25mmHg. Great Vessels IVC is normal in size and collapses >50% with inspiration. Pericardium There is no pericardial effusion. <Conclusion> Left ventricle is dilated. Mild concentric left ventricular hypertrophy. LVEF is 45-50%. Right ventricle is dilated. Left atrium is dilated. Right atrium is dilated. History of TAVR. Peak gradient of 47mmHg and a mean gradient of 26mmHg. There is mitral annular calcification. The tricuspid valve is normal in structure. [facility] [address] [address] 2 D/M-MODE ECHOCARDIOGRAM Name: MAIA OLMEDO Room #: 428-P ADM IN M.R.#: [id number] ������������� Admission: 11/27/18 ������������� Attend Phys: Holland Castillo MD Discharge: ��� ������������� ��� Date of : 37 Date of Service: 11/28/18 1317 �� Report #: [id number] �������� ��������������������������������������������[id number] Trace tricuspid regurgitation. Estimated PAP is 25mmHg. There is no pericardial effusion. ��������������������������������������������� <ELECTRONICALLY SIGNED> ���������������������������������������� By: Timur Fletcher MD ��������������������������������������������� 11/28/18 1317 16 16 Timur Fletcher MD /INF
--- NOTE | 2018-11-28 15:00 | EKG ---
[address] [address] ELECTROCARDIOGRAM REPORT Name: MAIA OLMEDO Room #: 428-P ADM IN M.R.#: [id number] ������������������ Admission: 11/27/18 ������������������ Attend Phys: Holland Castillo MD Discharge: ������������������ Date of : 37 Report #: [id number] ����������������������������������������������������������������� [id number] THIS REPORT FOR: //name// [facility] Test Date: 2018-11-28 Test Time: 09:18:32 Pat Name: MAIA OLMEDO Department: Room: 428 P Gender: M Internet Sales Associate: NOLAN : 1935 Requested By: April Gonsales Order Number: [id number] MD: Colby Medina Measurements Intervals [place] Rate: 65 P: 41 IN: 237 QRS: -52 QRSD: 179 T: 123 QT: 502 QTc: 523 Interpretive Statements Sinus rhythm Prolonged IN interval Left bundle branch block Compared to ECG 10/31/2018 01:16:08 First degree AV block now present Electronically Signed On 11-28-2018 15:00:25 HEDGE FUND ACCOUNTANT by Colby Medina [email or web address] ��������������������������������������������� <ELECTRONICALLY SIGNED> ���������������������������������������� By: Colby Medina MD ��������������������������������������������� 11/28/18 1500 7 7 Colby Medina MD /JOSHUA
--- NOTE | 2018-11-28 16:36 | NUR ---
INITIAL ASSESSMENT: Pt evaluated for d/c planning needs. Reviewed chart and spoke with nurse and pt. Pt is alert and oriented. 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 Pt uses w/c for ambulation. Pt plans on returning to [facility] on d/c from hospital. Will remain available to assist as needed.
[2018-11-28 17:31] VITALS: BP 92/60
[2018-11-28 19:44] VITALS: BP 103/40
[2018-11-29 04:29] VITALS: BP 113/52
--- NOTE | 2018-11-29 05:38 | NUR ---
PATIENTS CARES WERE ASSUMED AT SHIFT CHANGE. PATIENT WAS ASSESSED AND MEDS WERE PASSED. A LIGHT HS SNACK WAS GIVEN. PATIENT WAS NPO AFTER MIDNIGHT. A PROCEDURE THIS MORNING WITH DOCTOR AZEEM. HOURLY ROUNDING WAS DONE. PATIENT DID APPER TO BE SLEEPING WELL THIS SHIFT. THE BED IS IN A LOW AND LOCKED POSITION.
[2018-11-29 10:00] VITALS: BP 111/81
[2018-11-29 12:00] VITALS: BP 121/61
--- NOTE | 2018-11-29 14:04 | NUR ---
FAXED CLINICAL UPDATE TO [facility] SPOKE WITH JONEL IN ADM, SHE RECEIVED UPDATE. DCP TO FOLLOW.
[2018-11-29 15:25] VITALS: BP 106/64
[2018-11-29 19:33] VITALS: BP 111/64
--- NOTE | 2018-11-29 20:42 | NUR ---
PT ARRIVED TO UNIT A TRANSFER POST CATH. ALL POST CATH ORDERS AND PRECAUTIONS IN PLACE. PT ALERT AND ORIENTED X4, MONITORED ON TELE AND ABLE TO MAINTAIN 02 SAT >90 ON RA. DENIES PAIN AND SOA. ASSESSMENT CHARTED. PT TO RECIEVE DIALSIS IN AM. WILL CONTINUE TO MONITOR
--- NOTE | 2018-11-30 03:25 | NUR ---
ASSUMED PT CARE AT 1900. PT A/OX4, VITAL SIGNS STABLE, ASSESSMENT CHARTED. NO COMPLAINTS OF CHEST PAIN. BACK PAIN MANAGED WITH SOME PAIN MEDICATION. PT TAKEN TO CT VIA WHEELCHAIR. PT ABLE TO PIVOT TO CHAIR FROM BED. TOLERATED ACTIVITY APPROPRIATELY. PT CALLS APPROPRIATELY, CLOSE TO NURSING STATION. PROGRESSING TOWARD PLAN OF CARE. WILL CONTINUE TO MONITOR.
[2018-11-30 04:14] LABS: ALBUMIN 2.8 g/dL (3.4-5.0); CREATININE 8.7 mg/dL (0.7-1.3); TOTAL BILIRUBIN 0.5 mg/dL (<0.1-1.0); TOTAL PROTEIN 6.8 g/dL (6.4-8.2); TROPONIN-I 0.41 ng/mL (<0.06)
[2018-11-30 04:15] LABS: POTASSIUM 5.7 mmol/L (3.5-5.1)
[2018-11-30 04:20] VITALS: BP 116/59
[2018-11-30 07:10] VITALS: BP 126/58
[2018-11-30 08:27] LABS: HEMATOCRIT 29.9 % (42.0-52.0); MCH 33.5 pg (26.0-34.0); MCHC 33.4 g/dL (28.0-37.0); MCV 100.2 fL (80.0-100.0); RBC 2.99 mil/uL (4.50-6.00); RDW 14.6 % (10.5-14.5); WBC 9.4 thou/uL (4.0-11.0)
--- NOTE | 2018-11-30 08:45 | EKG ---
[address] [place] [address] ELECTROCARDIOGRAM REPORT Name: MAIA OLMEDO Room #: 203-P ADM IN M.R.#: [id number] ������������������ Admission: 11/27/18 ������������������ Attend Phys: Holland Castillo MD Discharge: ������������������ Date of : 37 Report #: [id number] ����������������������������������������������������������������� [id number] THIS REPORT FOR: //name// [facility] Test Date: 2018-11-30 Test Time: 06:11:28 Pat Name: MAIA OLMEDO Department: Room: 203 P Gender: M Acquisition Advisor: STEVE : 1935 Requested By: April Gonsales Order Number: [id number] MD: George Ramirez Measurements Intervals [place] Rate: 66 P: 47 CT: 259 QRS: -55 QRSD: 169 T: 109 QT: 499 QTc: 523 Interpretive Statements Sinus rhythm Ventricular premature complex Prolonged CT interval Left bundle branch block Compared to ECG 11/28/2018 09:18:32 Ventricular premature complex(es) now present Electronically Signed On 11-30-2018 8:45:13 REFRACTORY TILE HELPER by George Ramirez [email or web address] ��������������������������������������������� <ELECTRONICALLY SIGNED> ���������������������������������������� By: George Ramirez MD, [facility] ��������������������������������������������� 11/30/18 0845 0 0 George Ramirez MD, [facility] /EPI
[2018-11-30 10:41] VITALS: BP 112/50
[2018-11-30 15:24] VITALS: BP 118/66
--- NOTE | 2018-11-30 18:37 | NUR ---
RECIEVED REPORT AND ASSUMED CARE AT 0730. O X 4 BUT AT TIMES HAS INAPPROPRIATE COMMENTS. FLAT AFFECT AND DOES NOT WANT TO BE TOUCHED. UP WITH MAX ASSIST AND WHEELCHAIR. LUNGS DIMININISHED ON RA. MULTIPLE AREAS OF SKIN ABRASIONS AND TEARS IN DIFFERENT LEVELS OF HEALING. DRESSINGS TO PRATEEKDAVID, R LATERAL CALF. C COLLAR IN PLACE. AIMEE MIDLINE INTACT WITH GOOD BLOOD RETURN.
--- NOTE | 2018-11-30 18:45 | NUR ---
RECIEVED REPORT AND ASSUMED CARE. O X 4 NO COMPLAINTS OF NAUSEA OR PAIN AT THIS TIME. LAST DOSE OF TYLENOL AT 1730 FOR ARTHRITIC PAIN. RA, LUNGS CLEAR. RECIEVED DIALYSIS TODAY VIA RIGHT UA FISTULA
[2018-11-30 19:42] VITALS: BP 115/59
--- NOTE | 2018-12-01 02:58 | NUR ---
ASSUMED PT CARE AT 1900. PT A/OX4 BUT SEEMED TIRED FROM DIALYSIS. VITAL SIGNS STABLE, ASSESSMENT CHARTED. PAIN ADEQAUTELY MANAGED WITH PAIN MEDICATION. NO COMPLAINTS OF CHEST PAIN. RIGHT GRION SITE INTACT/DRY/SOFT. PT RESTED WELL THROUGH THE NIGHT. PROGESSING TOWARD PLAN OF CARE. POSSIBLE DISCHARGE SOON. WILL CONTINUE TO MONITOR.
[2018-12-01 04:43] VITALS: BP 129/65
[2018-12-01 07:18] VITALS: BP 113/36
--- NOTE | 2018-12-01 07:18 | NUR ---
ASSUMED CARE OF PT AT 0700. PT RESTING IN BED WITH CALL LIGHT IN REACH. PT STATES NO PAIN/NEEDS AT THIS TIME. WILL CONTINUE TO MONITOR.
[2018-12-01 12:00] VITALS: BP 118/62
[2018-12-01] MEDS ORDERED: DOXYCYCLINE HYC50 MG PO (12:55)
[2018-12-01] MEDS ORDERED: CLOPIDOGREL75 MG PO (12:55)
--- NOTE | 2018-12-01 13:04 | CATHLAB ---
[facility] [address] [place] [address] INVASIVE PROCEDURE REPORT Name: MAIA OLMEDO Room #: 203-P ADM IN M.R.#: [id number] ������������� Admission: 11/27/18 ������������� Attend Phys: Holland Castillo MD Discharge: ��� ������������� ��� Date of : 37 Date of Service: 12/01/18 1303 �� Report #: [id number] �������� ��������������������������������������������[id number] THIS REPORT FOR: //name// APPROVED REPORT Study performed: 11/29/2018 07:21:59 Patient Details Patient Status: In-Patient Room #: The patient is a 83 year-old male Event Personnel Phi Rust Chicken Catcher, Jordan Murray RN, Joanne Obando RTR, CATHERINE Curry, Gio Tripp Monitor Procedures Performed Right and Left Heart Cath w/or w/o Coronarie [id number] [facility] Aortogram Abdominal Peripheral Angio 851736 Supravalvular Aortography Injection 2260882 ISVA JEFFERSON Place w/wo Plasty Single LAD 467237 Indication Chest pain Procedure Narrative The Right Groin^ was infiltrated with 1% Lidocaine subcutaneous anesthesia. A PINNACLE 6FR Sheath #[id number] sheath was inserted into the . Coronary angiography was performed using coronary diagnostic catheters. The right coronary system was accessed and visualized with a JR4 catheter. The left coronary system was accessed and visualized with a 6FR JL5 #[id number] catheter. The left ventricle was accessed and visualized with a PIGTAIL catheter. Left ventriculogram was performed in 30 degree projection. An aortogram of the abdominal aorta was performed. Closure device was deployed with a 6 Fr MYNXGRIP 6/7F #[id number]. The patient tolerated the procedure well and there were no complications associated with the procedure. There was no hematoma. Intraoperative Conscious Sedation Sedation start time: 8.01 Case end Time: 9.17 Fentanyl 50 mcg Versed 1 mg Fluoro Time: 9.3 minutes Dose: DAP 29304 cGycm2 1435 mGy [facility] [address] [place] [address] INVASIVE PROCEDURE REPORT Name: MAIA OLMEDO Room #: 203-P ADM IN M.R.#: [id number] ������������� Admission: 11/27/18 ������������� Attend Phys: Holland Castillo MD Discharge: ��� ������������� ��� Date of : 37 Date of Service: 12/01/18 1303 �� Report #: [id number] �������� ��������������������������������������������[id number] Contrast Type and Amount: Visipaque 155 ml Hemodynamics The right atrial mean pressure is 19 mmHg. The right ventricular pressure is 66/14 mmHg. The pulmonary artery pressure is 67/29 mmHg with a mean of 43 mmHg. The mean pulmonary capillary wedge pressure is 17 mmHg. The aortic pressure is 129/59 mmHg with a mean of 83 mmHg. PCI Technique Lesion Percutaneous coronary intervention was performed on the proximal left anterior descending artery segment. A LAUNCHER 6FR EBU 4 #[id number] Guide Catheter was used to engage the ostium. A Luge Wire .014 x 182CM #[id number] Interventional Guidewire was used to cross the lesion. BALLOON DILATION A Balloon catheter Sprinter OTW 2.5 x 12 #[id number] was inserted and inflated up to 12.00atm for 23seconds. STENT DEPLOYMENT A drug-eluting stent XIENCE GUSTVAO RX 2.75 X 12 #[id number] was inserted and inflated up to 20.00atm for 24seconds. POST STENT DEPLOYMENT BALLOON DILATION A Balloon catheter TREK NC RX 3.25 X 12 #[id number] was inserted and inflated up to 20.00atm for 25seconds. Additional Inflation: 22.00atm for 23seconds. Conclusion #1 successful PTCA stent of the high-grade proximal LAD lesion just off the left main 80-90% to 0% with placement of a 2.75 x 12 drug-eluting stent postdilated to 3.4 mm in size yielding 0% residual and REED grade 3 flow #2 left main mildly disease large giving rise to LAD and circumflex #3 circumflex is dominant vessel mildly disease of first OM is a 50-60% and moderate distal disease in the second OM no occlusive disease #4 small nondominant RCA flush injected appears mildly diseased #5 supravalvular aortogram reveals an intact TAPVR I did not cross his valve aortic root is intact the valve seems well seated #6 abdominal aortogram intact no AAA [facility] [address] [place] [address] INVASIVE PROCEDURE REPORT Name: MAIA OLMEDO Room #: 203-P [facility] IN M.R.#: [id number] ������������� Admission: 11/27/18 ������������� Attend Phys: Holland Castillo MD Discharge: ��� ������������� ��� Date of : 37 Date of Service: 12/01/18 1303 �� Report #: [id number] �������� ��������������������������������������������[id number] Recommendations and plan: Continue aggressive risk factor modification post coronary stent protocol. ��������������������������������������������� <ELECTRONICALLY SIGNED> ���������������������������������������� By: Phi Rust MD, FACC ��������������������������������������������� 12/01/18 1303 130 02 Phi Rust MD, FACC /INF
--- NOTE | 2018-12-01 13:59 | NUR ---
PT. DISCHARGING TODAY TO [facility] FAXED DC ORDERS/SUMMARY TO FACILITY AND SPOKE WITH JONEL IN ADM. SHE RECEIVED DC ORDERS AND ARRANGED TRANSPORTATION VIA [facility]AN FOR [phone] SPOKE WITH SON (ELEAZAR) OF DISCHARGE AND TIME OF TRANSPORT. UNIT NOTIFIED AND CHART COPY PER US. RN TO CALL REPORT TO [phone].
--- NOTE | 2018-12-01 14:04 | NUR ---
Pt dcing back to the SNF today with skilled orders. He does have days available per admissions. DC business continuity planner has faxed orders and arranged for transport this afternoon. Nursing to call report.
== END 2018-12-01 16:06 | DRG 853 ==
LOC: ER 16:23 → 2N 11-27 00:39 → EROBS 11-27 00:39 → 4E 11-27 00:39 → 2N 11-29 09:52
PROVIDERS: Emergency Medicine; Hospitalist; Nurse Practitioner Adult Health; Nurse Practitioner Family; ADMIT Internal Medicine
PROC: 5A1D70Z Performance of Urinary Filtration, Intermittent, Less than 6 Hours Per Day (ICD-10-PCS; principal; 2018-11-28)
PROC: B211YZZ Fluoroscopy of Multiple Coronary Arteries using Other Contrast (ICD-10-PCS; 2018-11-29)
PROC: 4A023N8 Measurement of Cardiac Sampling and Pressure, Bilateral, Percutaneous Approach (ICD-10-PCS; 2018-11-29)
PROC: 027034Z Dilation of Coronary Artery, One Artery with Drug-eluting Intraluminal Device, Percutaneous Approach (ICD-10-PCS; 2018-11-29)
PROC: B215YZZ Fluoroscopy of Left Heart using Other Contrast (ICD-10-PCS; 2018-11-29)
PROC: B410YZZ Fluoroscopy of Abdominal Aorta using Other Contrast (ICD-10-PCS; 2018-11-29)
PROC: 5A1D70Z Performance of Urinary Filtration, Intermittent, Less than 6 Hours Per Day (ICD-10-PCS; 2018-11-30)
DX: A41.9 Sepsis, unspecified organism (principal); J18.9 Pneumonia, unspecified organism; N18.6 End stage renal disease; I13.2 Hypertensive heart and chronic kidney disease with heart failure and with stage 5 chronic kidney disease, or end stage renal disease; I50.40 Unspecified combined systolic (congestive) and diastolic (congestive) heart failure; N39.0 Urinary tract infection, site not specified; I42.9 Cardiomyopathy, unspecified; J98.11 Atelectasis; B96.20 Unspecified Escherichia coli [E. coli] as the cause of diseases classified elsewhere; I25.10 Atherosclerotic heart disease of native coronary artery without angina pectoris; E11.22 Type 2 diabetes mellitus with diabetic chronic kidney disease; E03.9 Hypothyroidism, unspecified; Z90.49 Acquired absence of other specified parts of digestive tract; E55.9 Vitamin D deficiency, unspecified; E66.01 Morbid (severe) obesity due to excess calories; Z96.653 Presence of artificial knee joint, bilateral; M62.84 Sarcopenia; K59.00 Constipation, unspecified; D63.8 Anemia in other chronic diseases classified elsewhere; E87.5 Hyperkalemia; B96.89 Other specified bacterial agents as the cause of diseases classified elsewhere; E11.51 Type 2 diabetes mellitus with diabetic peripheral angiopathy without gangrene; Z88.8 Allergy status to other drugs, medicaments and biological substances; Z91.19 Patient's noncompliance with other medical treatment and regimen; Z82.49 Family history of ischemic heart disease and other diseases of the circulatory system; Z95.2 Presence of prosthetic heart valve; Z68.37 Body mass index [BMI] 37.0-37.9, adult; Z91.14 Patient's other noncompliance with medication regimen; Z79.82 Long term (current) use of aspirin; Z79.899 Other long term (current) drug therapy; I25.2 Old myocardial infarction
CPT/HCPCS: 10081; 10183; 10783; 32100

== ENCOUNTER 2019-01-30 04:36 | Inpatient (IN) | payer OTHER ==
[~2019-01-30] VITALS: Ht 152.4 cm; Wt 117.2 kg
[~2019-01-30 04:36] MED LIST changes: +CLOPIDOGREL75 MG PO; +DOXYCYCLINE HYC50 MG PO
[2019-01-30 04:37] VITALS: BP 148/76
[2019-01-30] MEDS ORDERED: CALCIUM ACETAT667 M2 PO (04:50)
[2019-01-30] MEDS ORDERED: FLOMAX0.4 MG PO (04:51)
[2019-01-30] MEDS ORDERED: RENAL VITAMIN0.8 MG PO (04:53)
[2019-01-30] MEDS ORDERED: TESSALON PERLE100 MG PO (04:54)
[2019-01-30] MEDS ORDERED: ZOFRAN ODT4 MG DISSOLVE (04:55)
[2019-01-30 05:00] LABS: ABSOLUTE NEUTROPHILS 9.3 thou/uL (1.4-8.2); BASOPHILS 0.5 % (0.0-2.0); EOSINOPHILS 1.7 % (0.0-3.0); HEMATOCRIT 35.3 % (42.0-52.0); HEMOGLOBIN 11.5 gm/dL (14.0-18.0); LYMPHOCYTES 9.3 % (24.0-44.0); MCH 32.6 pg (26.0-34.0); MCHC 32.6 g/dL (28.0-37.0); MCV 100.3 fL (80.0-100.0); MONOCYTES 7.4 % (1.0-8.0); PLATELET COUNT 243 thou/uL (150-400); POLYS 81.1 % (36.0-66.0); RBC 3.52 mil/uL (4.50-6.00); RDW 16.4 % (10.5-14.5); WBC 11.5 thou/uL (4.0-11.0)
[2019-01-30 05:09] LABS: ANION GAP 13 mmol/L (7-16); BUN 76 mg/dL (7-18); CALCIUM 10.6 mg/dL (8.5-10.1); CHLORIDE 97 mmol/L (98-107); CO2 24 mmol/L (21-32); GLUCOSE 219 mg/dL (74-106); POTASSIUM 4.8 mmol/L (3.5-5.1); SODIUM 134 mmol/L (136-145)
[2019-01-30 05:18] LABS: ALBUMIN 3.5 g/dL (3.4-5.0); SGOT 13 U/L (15-37); SGPT 11 U/L (30-65); TOTAL BILIRUBIN 0.4 mg/dL (<0.1-1.0); TROPONIN-I 0.06 ng/mL (<0.06)
[2019-01-30 06:44] VITALS: BP 163/86
[2019-01-30 08:27] VITALS: BP 157/75
[2019-01-30 11:06] LABS: DIRECT BILIRUBIN < 0.1 mg/dL (<0.1-0.3)
[2019-01-30 14:50] VITALS: BP 114/54
--- NOTE | 2019-01-30 15:58 | NUR ---
PT ADMITTED RELATED TO SOA, PNUEMONIA, ESRD. CM REVIEWED CHART AND SPOKE WITH CARE TEAM. CM MET WITH PT AT BEDSIDE THIS DAY. PT IS A&O X4. CM ROLE INTRODUCED. PT INDICATED HE LIVES AT [facility]. 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 PT INDICATED HIS SON LIVES IN [place] AND HIS SISTER WHO LIVES LOCALLY WON'T BE VISITING SHE HAS A COLD. PT INDICATED HE PLANS TO RETURN TO [place] ONCE MEDICALLY STABLE. CM TO FOLLOW INDICATED WITH DC PLANNING.
--- NOTE | 2019-01-30 19:32 | NUR ---
ASSUMED CARE OF PT AT 0700. PT NEW ADMISSION BEFORE SHIFT CHANGE, ADMISSION ASSESSMENT COMPLETED. ALERT TO PERSON, PLACE, TIME, AND SITUATION. FORGETFUL AND CONFUSED AT TIMES. DENIES PAIN. [address], NO OXYGEN USE AT BASELINE. DIALYSIS TODAY, SOFT BP NOTED AND PT STATES FEELING TIRED. BILATERAL LEG EDEMA NOTED, LASIX GIVEN ORDERED. LEFT BUTTOCK PRESSURE WOUND NOTED - PICTURE TAKEN, BARRIER CREAM APPLIED, Q2H TURNS, COORDINATOR HOTELS CONSULTED. ACHS, NO INSULIN COVERAGE REQUIRED. DENTURES WERE LEFT AT [facility] AT ADMISSION, WITH PT NOW. PT IN STABLE CONDITION.
[2019-01-30 19:57] VITALS: BP 108/57
[2019-01-31 04:20] VITALS: BP 103/58
[2019-01-31 05:53] LABS: HEMATOCRIT 33.2 % (42.0-52.0); HEMOGLOBIN 11.2 gm/dL (14.0-18.0); MCH 32.9 pg (26.0-34.0); MCHC 33.5 g/dL (28.0-37.0); MCV 98.1 fL (80.0-100.0); PLATELET COUNT 244 thou/uL (150-400); RBC 3.39 mil/uL (4.50-6.00); RDW 15.9 % (10.5-14.5); WBC 7.4 thou/uL (4.0-11.0)
[2019-01-31 06:09] LABS: ALBUMIN 3.2 g/dL (3.4-5.0); CALCIUM 8.9 mg/dL (8.5-10.1); MAGNESIUM 2.3 mg/dL (1.8-2.4); PHOSPHORUS 4.3 mg/dL (2.5-4.9); POTASSIUM 4.2 mmol/L (3.5-5.1)
[2019-01-31 06:14] LABS: CREATININE 5.8 mg/dL (0.7-1.3)
[2019-01-31 06:35] LABS: ABSOLUTE NEUTROPHILS 5.7 thou/uL (1.4-8.2); PLATELET ESTIMATE NORMAL
[2019-01-31 07:13] LABS: HEP B SURFACE Ab(ANTI-HBS Non Reactive (()); HEPATITIS B SURFACE AG Negative (Negative)
--- NOTE | 2019-01-31 08:05 | EKG ---
[address] [place] [address] ELECTROCARDIOGRAM REPORT Name: MAIA OLMEDO Room #: 453-P ADM IN M.R.#: [id number] ������������������ Admission: 01/30/19 ������������������ Attend Phys: Holland Castillo MD Discharge: ������������������ Date of : 36 Report #: [id number] ����������������������������������������������������������������� [id number] THIS REPORT FOR: //name// [facility] ED Test Date: 2019-01-30 Test Time: 04:47:11 Pat Name: MAIA OLMEDO Department: Room: 453 P Gender: M Web Operations Administrator: . : 1935 Requested By: Natacha Hardwick Order Number: [id number] MD: George Ramirez Measurements Intervals [place] Rate: 89 P: 193 WA: 163 QRS: -42 QRSD: 184 T: 110 QT: 479 QTc: 583 Interpretive Statements Sinus rhythm with first-degree AV block Left bundle branch block Compared to ECG 11/30/2018 06:11:28 Ventricular premature complex(es) no longer present Electronically Signed On 01-31-2019 8:05:11 CDT by George Ramirez [email or web address] ��������������������������������������������� <ELECTRONICALLY SIGNED> ���������������������������������������� By: George Ramirez MD, [facility] ��������������������������������������������� 01/31/19 0805 0447 0447 George Ramirez MD, [facility] /EPI
--- NOTE | 2019-01-31 08:11 | EKG ---
[address] [email or web address] [address] ELECTROCARDIOGRAM REPORT Name: MAIA OLMEDO Room #: 453-P ADM IN M.R.#: [id number] ������������������ Admission: 01/30/19 ������������������ Attend Phys: Holland Castillo MD Discharge: ������������������ Date of : 36 Report #: [id number] ����������������������������������������������������������������� [id number] THIS REPORT FOR: //name// [facility] Test Date: 2019-01-30 Test Time: 11:35:19 Pat Name: MAIA OLMEDO Department: Room: [facility] Gender: M Glass Lathe Operator: Cesar DÍAZ : 1935 Requested By: Natacha Hardwick Order Number: [id number] MD: George Ramirez Measurements Intervals [place] Rate: 74 P: 71 CO: 247 QRS: -62 QRSD: 187 T: 116 QT: 491 QTc: 545 Interpretive Statements Sinus rhythm Prolonged CO interval Ventricular pacing Compared to ECG 11/30/2018 06:11:28 No significant change was found Electronically Signed On 01-31-2019 8:11:31 CDT by George Ramirez [email or web address] ��������������������������������������������� <ELECTRONICALLY SIGNED> ���������������������������������������� By: George Ramirez MD, [facility] ��������������������������������������������� 01/31/19 0811 1135 1135 George Ramirez MD, [facility] /EPI
--- NOTE | 2019-01-31 10:04 | NUR ---
Nutrition: Pt admitted nia [facility]ADO, seen for BMI 45=extreme class III obesity plus pressure wound on bottock. Hx of DM, ESRD with HD, CHF. Past non compliance of low salt, fluid restricted diet. Edema noted. Extra HD completed today. Several past admissions this year for SOB. States appetite and intake is not usual for last few meals. Usual wt 275, current 276. Stable x3 months. No wound care note in EMR-will order Nepro to supplement decreased intake. Encouraged intake of protein foods. Will continue to monitor for appetite to resume to normal, otherwise low nutrition risk.
--- NOTE | 2019-01-31 14:41 | NUR ---
dp sent clinicals to [place], patient is expected to return tomorrow to [place].
--- NOTE | 2019-01-31 14:46 | NUR ---
CARE TEAM INDICATED THAT PT WILL LIKELY BE MEDICALLY STABLE TO DISHCARGE BACK TO [place] TOMORROW Wednesday02/01/19. CM TO FOLLOW INDICATED WITH DC PLANNING.
[2019-01-31 14:54] VITALS: BP 116/45
--- NOTE | 2019-01-31 17:17 | NUR ---
WOUND CONSULT: PT. WAS SEEN TODAY BY DR. DASH AND MYSELF. FOR EVALUATION OF SKIN. PT. HAS NO WOUNDS NOTED AT THIS TIME. RECOMMENDATIONS: CONTINUE WITH PRESSURE ULCER PREVENTION. PT. AND STAFF NURSE WERE INSTRUCTED ON PLAN OF CARE. WOUND CARE TEAM WILL SIGN OFF AT THIS TIME. PLEASE RE-CONSULT IF NEEDED.
--- NOTE | 2019-01-31 20:23 | NUR ---
ASSUMED CARE PT FROM [facility]. A/OX3, CONTACT ISO FOR MRSA, 2L NC. 1L DIALYSIS FOR GEN EDEMA. DIALYSIS AGAIN IN THE MORNING. POOR APPETITE. BM THIS SHIFT. FALL PRECAUTIONS IN PLACE. CALLS APPROPRIATELY
[2019-01-31 21:21] VITALS: BP 93/39
[2019-02-01 04:07] VITALS: BP 118/47
--- NOTE | 2019-02-01 07:20 | NUR ---
progress pt a/o x4 up with 1 gb and walker. reports pain to back that is relieved by tylenol and a dose of morphine x1. assists in repositioning self, vss continue poc.
[2019-02-01 07:25] VITALS: BP 118/62
--- NOTE | 2019-02-01 13:20 | NUR ---
TOWARDS POC PT A/O X4. VSS, AFEBRILE. DENIES PAIN. PT REMAINED IN 2L O2. PT IS ONGOING DIALYSIS AT THIS MOMENT ON HIS ROOM. ISO MAINTAINED. WILL CONTINUE TO MONITOR.
--- NOTE | 2019-02-01 13:49 | HC ---
[facility] [place] [address] [place] [address] CONSULTATION Name: MAIA OLMEDO Room #: 453-P ADM IN M.R.#: [id number] Admission: 01/30/19 ������������������ Attend Phys: Holland Castillo MD Discharge: ������������������ Date of : 36 Report #: [id number] THIS REPORT FOR: //name// CC: Sudheer Garza [facility] physician/PCP Holland Castillo DATE OF SERVICE: 01/31/2019 INFECTIOUS DISEASES CONSULTATION REASON FOR CONSULTATION: I was asked to evaluate concerning gram-positive bacteremia. HISTORY OF PRESENT ILLNESS: The patient was an 83-year-old with end-stage renal disease, who resides in the residential. He has history of aortic valve replacement, coronary artery disease and congestive heart failure. Hospitalized on 01/30/2019 from [facility] with increased shortness of breath associated with chills that has been going on for the last several days. He has had productive cough with white sputum production. No nausea, vomiting or diarrhea. No pleuritic chest pain. No hemoptysis. He gets dyspneic with any activity, although it is very limited how much he does. He remains on dialysis 3 days a week. He denies any fever, chills or sweats. On his last admission in November, he was diagnosed with pneumonia and congestive heart failure. He completed his course of doxycycline at that time. He dialyzes through his right upper extremity AV fistula. He currently has a peripheral IV in place. He has had no rashes or decubiti. No nausea, vomiting or diarrhea. He has limited urine output. REVIEW OF SYSTEMS: Ten-point review of systems was negative, other than what is described above. ALLERGIES: CEPHALEXIN AND TETANUS. MEDICATIONS: As noted on his MAR, having been given a dose of Levaquin yesterday. PAST MEDICAL HISTORY: Generalized weakness, congestive heart failure, hypertension, aortic valve replacement, TAVR, end-stage renal disease, diabetes, hypothyroidism, right upper extremity AV fistula, laparoscopic band procedure for obesity, bilateral total knee arthroplasties, right elbow surgery, cholecystectomy and peripheral vascular disease. FAMILY HISTORY: Noncontributory. [facility] [address] [place] [address] CONSULTATION Name: MAIA OLMEDO Room #: 453-P [facility] IN M.R.#: [id number] Admission: 01/30/19 ������������������ Attend Phys: Holland Castillo MD Discharge: ������������������ Date of : 36 Report #: [id number] SOCIAL HISTORY: Past smoker. No significant alcohol intake. Resides in a residential. PHYSICAL EXAMINATION: VITAL SIGNS: He is afebrile and hemodynamically stable. GENERAL: He is alert, eating his dinner, in no acute distress. SKIN: Without rash or decubitus. His right upper extremity AV fistula site was nontender. No palpable adenopathy. EYES: Without scleral icterus or conjunctivitis. MOUTH: Without mucositis. NECK: Supple, with no thyromegaly or mass. LUNGS: Few crackles posteriorly. No consolidation. HEART: Regular, without murmur, gallop or rub, with crisp valve sounds. ABDOMEN: Obese, nontender. No hepatosplenomegaly or mass. EXTREMITIES: With 1+ peripheral edema. NEUROLOGIC: Mood was normal. Strength in his upper and lower extremities was symmetric. Cranial nerves intact and sensation was normal to touch in the upper and lower extremities. LABORATORY STUDIES: Hemoglobin 11.5, WBC 7.4 and platelet count 243,000. BNP 8448. Procalcitonin 0.59. Liver function test normal. Creatinine 9. Blood cultures 1 of 2 showing gram-positive cocci; further identification pending. Chest x-ray: Congestive heart failure. IMPRESSION: 1. An 83-year-old with end-stage renal disease, congestive heart failure and gram-positive cocci bacteremia. 2. Indeterminate if the bacteremia is true or a contaminant. He does not have a significant leukocytosis, fever or elevated procalcitonin. I am suspecting his presentation is more in the line of congestive heart failure. 3. End-stage renal disease. 4. Diabetes. RECOMMENDATIONS: We will give one dose of vancomycin pending further culture results. Continue with dialysis to control edema and reverse congestive heart failure. Serial chest x-rays. ��������������������������������������������� <ELECTRONICALLY SIGNED> ���������������������������������������� By: Ulices Grier MD ��������������������������������������������� 02/01/19 [phone] Ulices Grier MD /nt
[2019-02-01 14:39] VITALS: BP 91/57
--- NOTE | 2019-02-01 16:23 | NUR ---
CARE TEAM INDICATED PROBABLE DC BACK TO [place] TOMORROW. CM TO FOLLOW INDICATED WITH DC PLANNING.
[2019-02-01 20:03] VITALS: BP 109/63
[2019-02-02 04:39] VITALS: BP 105/65
[2019-02-02 05:38] LABS: MCH 33.1 pg (26.0-34.0); MCHC 33.4 g/dL (28.0-37.0); MCV 99.2 fL (80.0-100.0); RBC 3.63 mil/uL (4.50-6.00); RDW 15.8 % (10.5-14.5); WBC 7.1 thou/uL (4.0-11.0)
[2019-02-02 05:55] LABS: ALBUMIN 3.5 g/dL (3.4-5.0); CREATININE 5.8 mg/dL (0.7-1.3); PHOSPHORUS 4.6 mg/dL (2.5-4.9); POTASSIUM 4.3 mmol/L (3.5-5.1)
--- NOTE | 2019-02-02 07:36 | NUR ---
PROGRESS PT A/O X3 REFUSED ACCUCHECK AT HS, BUT WAS COOPERATIVE WITH ALL OTHER CARES, REPOSITIONED AND BARRIER CREAM APPLIED NEEDED THROUGH SHIFT. VSS, TELE INTACT.CONTINUE POC.
[2019-02-02 07:42] VITALS: BP 96/65
--- NOTE | 2019-02-02 14:46 | NUR ---
CARE TEAM INDICATED THAT PT IS PREGRESSING TOWARD GOAL OF DISCHARGE. CM TO FOLLOW INDICATED WITH DC PLANNING.
[2019-02-02 15:10] VITALS: BP 117/64
--- NOTE | 2019-02-02 16:37 | NUR ---
Received awake on bed. On room air. Patient turned regularly every 1-2 hours. With IV at Left Forearm. On dialysis --. Vancomycin random level done today. Vital signs stable. On blood sugar monitoring- sliding scale insulin given as prescribed. Patient seen by Dr. Howard, for renal diet- requested. Patient's bottom with redness, turned side to side, barrier cream applied. On falls precaution, bed alarm on, falls protocol observed.
[2019-02-02 19:50] VITALS: BP 131/58
--- NOTE | 2019-02-03 03:30 | NUR ---
Assumed care at 1845. Pt resting in bed. AOX4. VSS. Pt is on low dose sliding scale insulin. Refused to get his insulin at night. Turned Q2. Applied barrier cream to buttocks. L FA IV saline lock. Pt is on Daily weight. Call light within reach. No identified needs at the moment. Will continue to monitor.
[2019-02-03 03:35] VITALS: BP 127/59
--- NOTE | 2019-02-03 08:18 | HC ---
[facility] [place] [address] CONSULTATION Name: MAIA OLMEDO Room #: 453-P ADM IN M.R.#: [id number] Admission: 01/30/19 ������������������ Attend Phys: Holland Castillo MD Discharge: ������������������ Date of : 36 Report #: [id number] THIS REPORT FOR: //name// CC: Sudheer Garza [facility] physician/PCP Holland Castillo DATE OF SERVICE: 01/31/2019 CHIEF COMPLAINT: Gluteal sacral erythema. HISTORY OF PRESENT ILLNESS: The patient is an 83-year-old male patient who was admitted to the hospital with a history of acute respiratory failure with hypoxia. He was noted to have some gluteal erythema and I have been asked to see him with regard to wound care. PAST MEDICAL HISTORY: Positive for history of end-stage renal disease with hemodialysis, hypertension, diabetes, coronary artery disease, status post recent cardiac catheterization, which revealed coronary artery disease, status post stent in the proximal LAD. He has a history of congestive heart failure, status post TAVR, hypertension, and peripheral vascular disease. ALLERGIES: CEPHALEXIN, TETANUS AND DIPHTHERIA TOXOID. MEDICATIONS: Ipratropium and albuterol, carvedilol, calcium carbonate, insulin, docusate, clopidogrel, aspirin, gabapentin, furosemide, polyethylene glycol, Synthroid, Renvela, Sensipar, Robitussin, calcium acetate, Flomax, renal vitamins, Tessalon Perles, Zofran. FAMILY HISTORY: Noncontributory. SOCIAL HISTORY: Positive for alcohol use in the past as well as he is a former smoker, having quit greater than 1 year ago. REVIEW OF SYSTEMS: CONSTITUTIONAL: The patient denies fever, chills or weight loss. NEUROLOGICAL: The patient denies focal weakness. ENT: The patient denies earache, nasal drainage, or sore throat. CARDIOVASCULAR: The patient denies chest pain or palpitations. PULMONARY: The patient complained of shortness of breath with some dyspnea on exertion. GASTROINTESTINAL: The patient denies nausea, vomiting, diarrhea or abdominal pain. ORTHOPEDIC: The patient denies pain or swelling of the extremities. Other systems in a 14-point review of systems are negative. [facility] [address] [place] [address] CONSULTATION Name: MAIA OLMEDO Room #: 453-P [facility] IN M.R.#: [id number] Admission: 01/30/19 ������������������ Attend Phys: Holland Castillo MD Discharge: ������������������ Date of : 36 Report #: [id number] PHYSICAL EXAMINATION: VITAL SIGNS: At this time include temperature 37.1, pulse 62, respiratory rate 18, blood pressure 116/45. GENERAL: This is a chronically ill-appearing male patient who appears to be in minimal distress. HEENT: Head normocephalic. Nose and throat are clear. NECK: Supple. LUNGS: Diminished. HEART: Irregular. ABDOMEN: Soft. Bowel sounds present. Sacral region demonstrates a very mild sacral gluteal erythema that is blanchable. There is no evidence of pressure ulceration. Nothing is open at this time. CLINICAL IMPRESSION: 1. Mild sacral gluteal erythema with nothing open at this time. No evidence of any pressure injury. 2. Acute respiratory failure with hypoxemia and evidence of congestive heart failure. 3. End-stage renal disease. 4. Diabetes type 2. 5. Coronary artery disease. 6. Hypertension. RECOMMENDATIONS: At this point in time, we will recommend simple moist barrier cream would be best to utilize pressure prophylaxis techniques such as to q.2 hour turning and repositioning, since there is no opening pressure ulceration. Since he has no open ulcerations or significant dermatitis or evidence of any other skin breakdown at this point in time, we will sign off. We will be available should he have any further difficulty, but I appreciate being asked to see him in consultation. ��������������������������������������������� <ELECTRONICALLY SIGNED> ���������������������������������������� By: Abhinav Morin MD ��������������������������������������������� 02/03/19 0818 1556 0114 Abhinav Morin MD /nt
[2019-02-03 08:55] VITALS: BP 137/65
--- NOTE | 2019-02-03 14:03 | NUR ---
IF PT IS MEDICALLY STABLE TO DISCHARGE OVER THE WEEKEND FAX ORDERS TO [facility] REPORT TO . ARRANGE TRANSPORT THROUGH [facility] ON THE CHART. CHART COPY ORDERED. CM TO FOLLOW INDICATED WITH DC PLANNING.
--- NOTE | 2019-02-03 20:17 | NUR ---
Assumed pt care this am, isolation maintained. Pt was turned every 2 hours. fall precaution set in place. Pt was stable through out the shift. did have some nausea and vomiting dueing lunch, medication given and relief was noted. Barrier cream placed on his bottom. Pt is on daily weight and I and o. Dialysis is scheduled MW, dialysis commenced today, endorsed to the night nurse. POC followed, pt requested medication and meals 5pm onwards be given after dialysis (9pm)
[2019-02-04 03:49] VITALS: BP 153/88
--- NOTE | 2019-02-04 07:05 | NUR ---
patient aox2 confused and forgetful. patient incontient this shift, pericare and barrier cream applied as needed. pain controlled this shift. patient refused to finish dialysis this shift, patient had an hour left for dialysis, told dialysis was screaming at dialysis nurse <<take me off>>. patient was getting agitated and wanted to pull out the needles during dialysis. no soa or distress this shift.patient is on room air. patient gets irritated at times with care.patient calm and cooperative with meds.patient in bed asleep at this time breathing regular and unlaboured.
--- NOTE | 2019-02-04 07:23 | HC ---
[facility] [place] [address] CONSULTATION Name: MAIA OLMEDO Room #: 453-P ADM IN M.R.#: [id number] Admission: 01/30/19 ������������������ Attend Phys: Holland Castillo MD Discharge: ������������������ Date of : 37 Report #: [id number] THIS REPORT FOR: //name// CC: Sudheer Garza [facility] physician/PCP Holland Castillo DATE OF SERVICE: 01/30/2019 REASON FOR CONSULTATION: End-stage renal disease. REASON FOR PRESENTATION: Shortness of breath. HISTORY OF PRESENT ILLNESS: A well-known patient to me. He has end-stage renal disease, was maintained on hemodialysis in the [facility] every Wednesday, Wednesday, Wednesday. He has issues related to noncompliance with his fluid and salt restriction. He presented to the hospital reporting that he has been having some shortness of breath for the last couple of days. He also reported congestion symptoms. He has dry cough. He has upper respiratory tract infection symptoms. He was recently hospitalized for similar symptoms and a cardiac catheterization was done. He had a stent placed to the proximal LAD. He usually follows with [facility] after a TAVR procedure done there. The patient's findings today were consistent with fluid overload and pulmonary edema. Consultation was placed for me to manage his issues as he was hypoxemic on his presentation. PAST MEDICAL HISTORY: 1. End-stage renal disease. 2. Coronary artery disease. 3. Hypothyroidism. 4. Status post TAVR procedure. 5. Lap-Band. 6. Bilateral knee replacement. 7. Right elbow surgery. 8. Peripheral vascular disease. MEDICATIONS: 1. Carvedilol. 2. Insulin NovoLog. 3. Plavix. 4. Midodrine. 5. Furosemide. 6. Levothyroxine. ALLERGIES: CEPHALEXIN AND TETANUS TOXOID. [facility] [address] [place] [address] CONSULTATION Name: MAIA OLMEDO Room #: 453-P ADM IN Nigel.#: [id number] Admission: 01/30/19 ������������������ Attend Phys: Holland Castillo MD Discharge: ������������������ Date of : 36 Report #: [id number] SOCIAL HISTORY: He resides in a nursing facility. Denies drug or alcohol abuse. FAMILY HISTORY: Significant for diabetes mellitus and hypertension. REVIEW OF SYSTEMS: GENERAL: No fever or chills. CARDIOVASCULAR: As per history of present illness. PULMONARY: As per history of present illness. ENT: Upper respiratory tract infection symptoms. GASTROINTESTINAL: No nausea or vomiting. GENITOURINARY: No frequency or urgency. NEUROLOGICAL: No seizures. No numbness. PHYSICAL EXAMINATION: VITAL SIGNS: Pulse 89, blood pressure was 148/76, temperature 36.7. HEAD AND NECK: No jugular venous distention. CHEST: Diffuse crackles. CARDIOVASCULAR: No rub detected. ABDOMEN: Soft, nontender with no hepatosplenomegaly. EXTREMITIES: Lower extremities, +3 edema. LABORATORY DATA: Laboratory values reviewed. White blood cell count was 11.5. Sodium was 134, BUN was 76, creatinine was 9. BNP was 8448. Chest x-ray: Diffuse pulmonary edema. ASSESSMENT, IMPRESSION AND PLAN: 1. Pulmonary edema. 2. End-stage renal disease. 3. Coronary artery disease. 4. The patient is known to have major noncompliance issues with his salt and fluid restriction. He has recurrent issues with pulmonary edema. We will dialyze emergently today. 5. Resume his outpatient medications. 6. We will continue to follow during his hospital stay. ��������������������������������������������� <ELECTRONICALLY SIGNED> ���������������������������������������� By: Sudheer Garza MD ��������������������������������������������� 02/04/19 0723 [id number] Sudheer Garza MD /nt
[2019-02-04 07:26] VITALS: BP 83/54
[2019-02-04 20:41] VITALS: BP 97/54
--- NOTE | 2019-02-04 20:59 | NUR ---
Assumed pt care this am, isolation maintained, pericare and barried cream applied. BP was on the low side but asytmptomatic, consulted Dr. Howard , BP medication no given monitored pt, endorsed to the night nurse. NO nausea, vomiting or pain was noted or verbalized. POC followed.
--- NOTE | 2019-02-05 02:17 | NUR ---
PATIENT AOX2 CONFUSED AND FORGETFUL AT TIMES. PATIENT IRRITABLE AT TIME.PATIENT CALM AND COOPERATIVE WITH MEDS AND CARE. NO SOA OR DISTRESS NOTED THIS SHIFT. FALL PRECAUTION IN PLACE. PATIENT IN BED ASLEEP AT THIS TIME BREATHING REGULAR AND UNLABOUED.
[2019-02-05 05:00] VITALS: BP 100/49
[2019-02-05 07:16] VITALS: BP 124/62
[2019-02-05 16:06] VITALS: BP 105/60
--- NOTE | 2019-02-05 16:51 | NUR ---
Received awake on bed. Vital signs stable. Patient with Fistula at left upper arm, on hemodialysis --. Patient with redness on his bottom, turned every 2 hours. Assisted in ADLs.
[2019-02-05 20:33] VITALS: BP 117/55
--- NOTE | 2019-02-06 02:43 | NUR ---
PATIENT AOX2 CONFUSED AT TIMES. PATIENT DENIED PAIN OR DISCOMFORT. NO SOA OR DISTRESS NOTED THIS SHIFT. PATIENT REFUSED HS INSULIN. FALL PRECAUTION IN PLACE. PATIENT IN BED ASLEEP AT THIS TIME BREATHING REGULAR AND UNLABOURED.
[2019-02-06 04:35] VITALS: BP 102/59
[2019-02-06 08:01] VITALS: BP 109/60
[2019-02-06 12:39] LABS: ABSOLUTE NEUTROPHILS 7.1 thou/uL (1.4-8.2); BASOPHILS 0.7 % (0.0-2.0); EOSINOPHILS 2.9 % (0.0-3.0); HEMATOCRIT 33.9 % (42.0-52.0); HEMOGLOBIN 11.3 gm/dL (14.0-18.0); LYMPHOCYTES 12.3 % (24.0-44.0); MCH 32.7 pg (26.0-34.0); MCHC 33.2 g/dL (28.0-37.0); MCV 98.3 fL (80.0-100.0); MONOCYTES 7.3 % (1.0-8.0); PLATELET COUNT 229 thou/uL (150-400); POLYS 76.8 % (36.0-66.0); RBC 3.45 mil/uL (4.50-6.00); RDW 15.3 % (10.5-14.5); WBC 9.2 thou/uL (4.0-11.0)
[2019-02-06 12:44] LABS: CALCIUM 8.9 mg/dL (8.5-10.1); CREATININE 11.5 mg/dL (0.7-1.3); POTASSIUM 5.3 mmol/L (3.5-5.1)
--- NOTE | 2019-02-06 15:54 | NUR ---
CARE TEAM HAD ANTICIPATED POSSIBLE DISCHARGE BACK TO [facility] THIS DAY BUT DIALYSIS WAS INITIATE AND PT SUSTAINED A RUN OF VT AND CARDIOLOGY WAS CONSULTED. CM CALLED AND UPDATED FACILITY. CM TO FOLLOW INDICATED WITH DC PLANNING.
--- NOTE | 2019-02-06 18:09 | EKG ---
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 FERREIRA : 1935 Requested By: Celena Camargo Order Number: [id number] MD: Colby Medina Measurements Intervals [place] Rate: 85 P: 70 FL: 239 QRS: -22 QRSD: 186 T: 145 QT: 455 QTc: 542 Interpretive Statements Sinus rhythm Ventricular premature complex Prolonged [place] interval Left bundle branch block Baseline wander in lead(s) V1 Compared to ECG 01/30/2019 11:35:19 Ventricular premature complex(es) now present Left bundle-branch block now present Ventricular-paced complex(es) or rhythm no longer present Electronically Signed On 02-06-2019 18:08:57 CDT by Colby Medina [email or web address] ��������������������������������������������� <ELECTRONICALLY SIGNED> ���������������������������������������� By: Colby Medina MD ��������������������������������������������� 02/06/19 1808 [id number] Colby Medina MD /EPI
--- NOTE | 2019-02-06 20:15 | NUR ---
Received awake on bed. Due medications given as prescribed. With fistula at right upper arm, with IV SL at left arm. Patient with redness at buttocks, skin intact, patient turned regularly every 2 hours, barrier cream applied. A+O, forgetful. on room air. On blood sugar monitoring, with sliding scale. Called dialysis regarding time since patient hasnt gone still at lunch time, will have this afternoon-patient updated. Pt seen by Dr. Howard- esperanza for d/c after dialysis, to confirm with Dr. Grier regarding antibiotics. CM informed re:d/c. Seen by Dr. Grier. Complained he hasnt opened bowels for several day, Dr. Howard aware during his rounds and ordered laxatives- given as prescribed. Patient had VT during dialysis pt was unresponsive and with sats of 82% , rapid response team called. Patient given with 1000ml bolus of NS by Dialysis nurse, BP came up, patient responsive post bolus. Patient with cardio consult- DR. Griffin informed, patient seen by JAYCE Camargo, assessment done. EKG ordered- requested and done. CM informed re: cancelled d/c. Vancomycin post dialysis given by dialysis nurse.
[2019-02-06 20:38] VITALS: BP 84/85
[2019-02-07 03:36] VITALS: BP 105/50
[2019-02-07 05:33] LABS: HEMATOCRIT 30.3 % (42.0-52.0); HEMOGLOBIN 10.3 gm/dL (14.0-18.0); MCH 33.3 pg (26.0-34.0); MCV 97.8 fL (80.0-100.0); RBC 3.1 mil/uL (4.50-6.00); RDW 15.5 % (10.5-14.5); WBC 8.1 thou/uL (4.0-11.0)
[2019-02-07 05:43] LABS: CALCIUM 8.5 mg/dL (8.5-10.1); CREATININE 7.1 mg/dL (0.7-1.3); POTASSIUM 4.6 mmol/L (3.5-5.1)
[2019-02-07 07:52] VITALS: BP 107/49
[2019-02-07 09:02] VITALS: BP 107/49
--- NOTE | 2019-02-07 10:35 | NUR ---
F/U: pt suppose to D/C yesterday but had episode of ventricular tachycardia. Pressure wound indicated on admission assessment. Wound care consulted and stated no wound present. Appetite so/so with 50% intake. No longer drinking Nepro, will d/c. Current wt 258 lbs, 6.6% x1 week. Significant, however may be fluid related due to previous noncompliance of fluid/Na restricted diet, HD, and improved edema since admission. Continue at low risk.
--- NOTE | 2019-02-07 14:26 | NUR ---
patient will dc today to [place] via stretcher, 2 L oxygen. Unit notified, cc ordered update, dc papers sent to facility and unit for chart copy. DP notified patient's sister Yenny.
--- NOTE | 2019-02-07 15:20 | NUR ---
PT IS TO DISCHARGE BACK TO [facility] THIS DAY. DC MANAGEMENT LEAD FAXED ORDERS, NOTIFIED PT'S SISTER, AND ARRANGED STRETCHER VAN TRANSPORT BETWEEN [id number]. CHART COPY MADE. REPORT CALL BY NURSE. NO OTHER CM INTERVENTION INDICATED AT THIS TIME. CASE CLOSED.
--- NOTE | 2019-02-07 18:41 | NUR ---
Assumed pt care this am, pt stable through out the shift. FAll risk protocol in place, no nausea and vomiting was noted during this shift. No pain was noted as well. Tried to turn the patient every 2 hours but pt would refise at times. Pt had 3 big bowel movements today. Isolation protocol maintained, POC followed, pericare given prior to dc. Upper left arm fistula for dialysis patent, on hemodialysis MWF. Redness noted on his bottom, wendi care given and barrier cream placed. IV removed. Report called to facility, pt is now dc
== END 2019-02-07 16:28 | DRG 291 ==
LOC: ER 04:36 → EROBS 06:05 → 4W 06:05
PROVIDERS: Hospitalist; Nurse Practitioner; Student in an Organized Health Care Education/Training Program; ADMIT Internal Medicine
PROC: 5A1D70Z Performance of Urinary Filtration, Intermittent, Less than 6 Hours Per Day (ICD-10-PCS; principal; 2019-01-30)
PROC: 5A1D70Z Performance of Urinary Filtration, Intermittent, Less than 6 Hours Per Day (ICD-10-PCS; 2019-01-31)
PROC: 5A1D70Z Performance of Urinary Filtration, Intermittent, Less than 6 Hours Per Day (ICD-10-PCS; 2019-02-01)
PROC: 5A1D70Z Performance of Urinary Filtration, Intermittent, Less than 6 Hours Per Day (ICD-10-PCS; 2019-02-03)
PROC: 5A1D70Z Performance of Urinary Filtration, Intermittent, Less than 6 Hours Per Day (ICD-10-PCS; 2019-02-06)
DX: I13.2 Hypertensive heart and chronic kidney disease with heart failure and with stage 5 chronic kidney disease, or end stage renal disease (principal); J96.01 Acute respiratory failure with hypoxia; N18.6 End stage renal disease; J18.9 Pneumonia, unspecified organism; I50.43 Acute on chronic combined systolic (congestive) and diastolic (congestive) heart failure; R78.81 Bacteremia; J81.1 Chronic pulmonary edema; Z68.43 Body mass index [BMI] 50.0-59.9, adult; E11.22 Type 2 diabetes mellitus with diabetic chronic kidney disease; Z99.2 Dependence on renal dialysis; E66.01 Morbid (severe) obesity due to excess calories; E03.9 Hypothyroidism, unspecified; Z96.653 Presence of artificial knee joint, bilateral; E11.51 Type 2 diabetes mellitus with diabetic peripheral angiopathy without gangrene; I25.10 Atherosclerotic heart disease of native coronary artery without angina pectoris; E55.9 Vitamin D deficiency, unspecified; L22 Diaper dermatitis; Z79.899 Other long term (current) drug therapy; Z95.2 Presence of prosthetic heart valve; Z87.01 Personal history of pneumonia (recurrent); Z98.84 Bariatric surgery status; Z90.49 Acquired absence of other specified parts of digestive tract; Z88.1 Allergy status to other antibiotic agents; Z88.7 Allergy status to serum and vaccine; Z91.14 Patient's other noncompliance with medication regimen; Z91.19 Patient's noncompliance with other medical treatment and regimen; Z95.5 Presence of coronary angioplasty implant and graft
CPT/HCPCS: 10045; 32100

== ENCOUNTER 2019-02-09 23:35 | Inpatient (IN) | payer OTHER ==
[~2019-02-09] VITALS: Ht 175.3 cm; Wt 118.8 kg
[~2019-02-09 23:35] MED LIST changes: +CALCIUM ACETAT667 M2 PO; +FLOMAX0.4 MG PO; +RENAL VITAMIN0.8 MG PO; +TESSALON PERLE100 MG PO; +ZOFRAN ODT4 MG DISSOLVE
[2019-02-09 23:36] VITALS: BP 88/47
[2019-02-10] VITALS (7 sets, daily range): BP systolic 93–138; BP diastolic 47–68
[2019-02-10] LABS: ABSOLUTE NEUTROPHILS 7.4 thou/uL (1.4-8.2); BASOPHILS 0.7 % (0.0-2.0); EOSINOPHILS 1.8 % (0.0-3.0); HEMATOCRIT 25.9 % (42.0-52.0); HEMOGLOBIN 8.6 gm/dL (14.0-18.0); LYMPHOCYTES 6.1 % (24.0-44.0); MCH 33.1 pg (26.0-34.0); MCHC 33.1 g/dL (28.0-37.0); MONOCYTES 6.6 % (1.0-8.0); PLATELET COUNT 189 thou/uL (150-400); POLYS 84.8 % (36.0-66.0); RBC 2.59 mil/uL (4.50-6.00); RDW 15.6 % (10.5-14.5); WBC 8.7 thou/uL (4.0-11.0)
[2019-02-10 00:05] LABS: CREATININE 7.9 mg/dL (0.7-1.3)
[2019-02-10 00:11] LABS: POTASSIUM 5.3 mmol/L (3.5-5.1)
[2019-02-10 00:15] LABS: TOTAL BILIRUBIN 0.4 mg/dL (<0.1-1.0); TOTAL PROTEIN 7.2 g/dL (6.4-8.2); TROPONIN-I 0.22 ng/mL (<0.06)
[2019-02-10] MEDS ORDERED: ASPIRIN81 M2 PO (02:02)
[2019-02-10] MEDS ORDERED: CALCIUM 600 +1 EAC1 PO (02:03)
[2019-02-10] MEDS ORDERED: COREG6.25 MG PO (02:03)
[2019-02-10] MEDS ORDERED: PLAVIX 75 MG TA75 M1 PO (02:03)
[2019-02-10] MEDS ORDERED: COLACE100 MG PO (02:04)
[2019-02-10] MEDS ORDERED: FLOMAX0.4 MG PO (02:04)
[2019-02-10] MEDS ORDERED: LANTUS100 UNIT/M SUBQ (02:05)
[2019-02-10] MEDS ORDERED: GABAPENTIN 100100 MG PO (02:05)
[2019-02-10] MEDS ORDERED: SYNTHROID100 MC1 PO (02:06)
[2019-02-10] MEDS ORDERED: MIDODRINE HCL 55 M1 PO (02:07)
[2019-02-10] MEDS ORDERED: MIRALAX17 GM PO (02:07)
[2019-02-10] MEDS ORDERED: RENAL VITAMIN0.8 MG PO (02:08)
[2019-02-10] MEDS ORDERED: SENSIPAR 30 MG30 M1 PO (02:09)
[2019-02-10] MEDS ORDERED: RENVELA800 MG PO (02:13)
[2019-02-10] MEDS ORDERED: BACTRIM DS TAB1 EACH PO (02:14)
[2019-02-10] MEDS ORDERED: CALCIUM ACETATE PO (02:16)
--- NOTE | 2019-02-10 04:44 | NUR ---
PATIENT WAS A NEW ADMISSION TO THE UNIT THIS SHIFT. HE ARRIVED VIA CART FROM THE ER AND WAS TRANSFERRED TO THE BED WITHOUT INCIDENT. PATIENT IS ALERT AND ORIENTED AND ABLE TO PARTICIPATE IN ADMISSION. NURSE TO FULLY COMPLETE ADMISSION PROCESS AND INITIATE CARE PLAN. CONTINUE PLAN OF CARE.
[2019-02-10 05:38] LABS: % SATURATION 19 % (20-39); IRON 49 ug/dL (65-175); TIBC 256 ug/dL (250-450)
[2019-02-10 06:11] LABS: FOLIC ACID 12.1 ng/mL (8.6-58.9)
[2019-02-10] MEDS ORDERED: TYLENOL325 MG PO (10:36)
[2019-02-10] MEDS ORDERED: IPRAT-ALBUT 0.5-3 ML INH (10:37)
[2019-02-10] MEDS ORDERED: ROBITUSSIN100 MG/53 PO (10:37)
--- NOTE | 2019-02-10 10:43 | 2DMMODE ---
[facility] [address] [place] [address] 2 D/M-MODE ECHOCARDIOGRAM Name: MAIA OLMEDO Room #: 359-P ADM IN M.R.#: [id number] ������������� Admission: 02/10/19 ������������� Attend Phys: Erich Dillard, Discharge: ��� ������������� ��� Date of : 37 Date of Service: 02/10/19 1043 �� Report #: [id number] �������� ��������������������������������������������[id number] THIS REPORT FOR: //name// APPROVED REPORT Study performed: 02/10/2019 09:08:41 EXAM: Comprehensive 2D, Doppler, and color-flow Echocardiogram Patient Location: Bedside Room #: 359 Status: routine BSA: 2.32 HR: 64 bpm BP: 138/63 mmHg Rhythm: NSR Other Information Study Quality: Adequate Technically limited study due to morbid obesity. Indications CAD Cardiomyopathy Chest Pain Hx: TAVR, NSTEMI 2D Dimensions RVDd: 39.06 mm IVSd: 13.15 (7-11mm) LVDd: 61.57 mm PWd: 13.21 (7-11mm) Ascending Ao: 41.07 (22-36mm) LVDs: 48.41 (25-40mm) Volumes Left Atrial Volume (Systole) Single Plane 4CH: 63.25 mL Single Plane 2CH: 100.54 mL LA ESV Index: 37.00 mL/m2 Aortic Valve AoV Peak Lester.: 3.36 m/s AO Peak Gr.: 45.27 mmHg LVOT Max P.19 mmHg AO Mean Gr.: 25.00 mmHg AO V2 Mean: 2.35 m/s LVOT Max V: 0.89 m/s AO V2 VTI: 78.84 cm [facility] [address] [place] [address] 2 D/M-MODE ECHOCARDIOGRAM Name: MAIA OLMEDO Room #: 359-P ADM IN .R.#: [id number] ������������� Admission: 02/10/19 ������������� Attend Phys: Erich Dillard, Discharge: ��� ������������� ��� Date of : 37 Date of Service: 02/10/19 1043 �� Report #: [id number] �������� ��������������������������������������������[id number] Mitral Valve E/A Ratio: 0.8 MV Decel. Time: 192.81 ms MV E Max Lester.: 1.20 m/s MV A Lester.: 1.45 m/s MV PHT: 55.91 ms IVRT: 62.28 ms Pulmonary Valve PV Peak Lester.: 1.01 m/s PV Peak Gr.: 4.06 mmHg Tricuspid Valve TR Peak Lseter.: 3.66 m/s RAP Estimate: 5.00 mmHg TR Peak Gr.: 53.53 mmHg PA Pressure: 59.00 mmHg Left Ventricle Left ventricle is moderately dilated. Mild concentric left ventricular hypertrophy. Left ventricular systolic function is mild to moderately decreased. LVEF is 35-40% Mild diastolic dysfunction is present (impaired relaxation pattern). Right Ventricle The right ventricle is normal size. The right ventricular systolic function is normal. Atria Left atrium is mildly dilated. Right atrium is mildly dilated. Aortic Valve History of TAVR. Peak gradient of 45mmHg, mean gradient of 25mmHg. Trace to mild aortic regurgitation. Mitral Valve Mitral valve leaflets are thickened. Moderate mitral annular calcification. Trace to mild mitral regurgitation. No evidence of mitral valve stenosis. Tricuspid Valve The tricuspid valve is normal in structure. Mild to moderate tricuspid regurgitation. Moderate pulmonary hypertension with an estimated PAP of 60mmHg. Pulmonic Valve [facility] [place] [address] 2 D/M-MODE ECHOCARDIOGRAM Name: MAIA OLMEDO Room #: 359-P ADM IN M.R.#: [id number] ������������� Admission: 02/10/19 ������������� Attend Phys: Erich Dillard, Discharge: ��� ������������� ��� Date of : 37 Date of Service: 02/10/19 1043 �� Report #: [id number] �������� ��������������������������������������������[id number] Pulmonic valve is not well visualized. Trace pulmonic regurgitation. Great Vessels The aortic root is not well visualized. 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 IVC is normal in size and collapses >50% with inspiration. Pericardium There is no pericardial effusion. <Conclusion> Left ventricle is moderately dilated. Mild concentric left ventricular hypertrophy. LVEF is 35-40% Mild diastolic dysfunction is present (impaired relaxation pattern). The right ventricle is normal size. Left atrium is mildly dilated. Right atrium is mildly dilated. History of TAVR. Peak gradient of 45mmHg, mean gradient of 25mmHg. Trace to mild aortic regurgitation. Trace to mild mitral regurgitation. Mild to moderate tricuspid regurgitation. Moderate pulmonary hypertension with an estimated PAP of 60mmHg. 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 There is no pericardial effusion. ��������������������������������������������� <ELECTRONICALLY SIGNED> ���������������������������������������� By: Phi Rust MD, FACC ��������������������������������������������� 02/10/19 1043 1043 1043 Phi Rust MD, FAC /INF
--- NOTE | 2019-02-10 12:32 | NUR ---
WOUND CONSULT; THIS CONSULT ENTERED IN ERROR. NO NEED TO FOLLOW.
--- NOTE | 2019-02-10 14:44 | NUR ---
INITIAL ASSESSMENT: Pt evaluated for d/c planning needs. Reviewed chart and spoke with nurse and pt. Pt is alert and oriented. 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 Pt has dialysis there MWF. Pt's son lives in [place] and his sister lives in [facility]. Pt is able to assist with transfers at facility and is w/c level of care. Pt plans on returning back to [place] on d/c from hospital. Physician said pt may be ready for d/c on Wednesday. Asked vacation planner to fax referral to [place]. Called child care education coordinator and left message re: possible d/c on Wednesday. Will remain available to assist as needed.
--- NOTE | 2019-02-10 15:09 | NUR ---
Nutrition: pt admit with CP, PNA. Consulted due to obesity, BMI 38, obesity class 2. Prior UBW reported as 270#. Current 263#. If accurate, favorable loss. Fair appetite reported. From LTC and prior documentation of Na+ and fluid restriction noncompliance. Pts meals are prepared for him and he states he has no choice. Avoids salt shaker. Fluid restriction reinforced. Refusing further diet review. Low risk but remain available for further needs.
--- NOTE | 2019-02-10 15:27 | NUR ---
DISCHARGE PLANNING. PATIENT ANTICIPATED TO DISCHARGE TOMORROW BACK TO [facility]. CHART COPY COMPLETED PER SERVER MANAGER. [facility] PCS FORM COMPLETED AND FAXED. PCS FORM PLACED ON FRONT OF PATIENTS CHART. ONCE DISCHARGE ORDERS ARE COMPLETED PER ATTENDING PHYSICIAN PLEASE FAX ORDERS TO [facility] [phone]. PLEASE CALL [facility] MAIN LINE [phone] AND ASK FOR WEEKEND CHARGE NURSE TO FACILITATE DISCHARGE BACK TO [place]. PLEASE CALL [facility] DISPATCH [phone] TO SET UP PATIENTS TRANSPORTATION BACK TO [facility]. THANK YOU. [facility] MAIN LINE [phone] FAX [phone] [facility] DISPATCH LINE [phone] FAX [phone]
--- NOTE | 2019-02-10 17:13 | NUR ---
TURNED PT Q2 HOURS TODAY AND PT VOIDED IN BED AND HAD 1 BM. NURSING AID WAS NOT AWARE THAT PT NEEDED STOOL SAMPLE SO WAS FLUSHED. PLACED SIGN IN ROOM THAT NEED TO COLLECT STOOL SAMPLE AND URINE IF POSSIBLE, HOWEVER I/D HAS SIGNED OFF CASE. PT RECIEVING DIALYSIS AT THIS TIME. WILLHOLD EVENING MEDS AND WILL INSTRUCT NIGHT RN TO GIVE. WILL CONTINUE TO ASSESS.
[2019-02-11 03:35] VITALS: BP 127/60
--- NOTE | 2019-02-11 05:16 | NUR ---
Hemodialysis done this shift. Dialysis nurse said the patient tolerated well. Patient on 2LNC. Lungs clear and diminished. No breathing issues this shift. Barrier cream applied to patients bottom per pt request. Q2H turns completed. Patient incontinent of urine but was able to notify when he felt wet. Plan for discharge today, but patient is concerned he isn't ready since he was just recently admitted. Patient encouraged to talk with the doctor today about his concerns. Progress toward plan of care goals made.
[2019-02-11 06:35] LABS: HEMATOCRIT 30.9 % (42.0-52.0); HEMOGLOBIN 10.3 gm/dL (14.0-18.0); MCH 33.3 pg (26.0-34.0); MCHC 33.3 g/dL (28.0-37.0); MCV 100.1 fL (80.0-100.0); RBC 3.09 mil/uL (4.50-6.00); RDW 15.4 % (10.5-14.5); WBC 7.4 thou/uL (4.0-11.0)
[2019-02-11 06:43] LABS: CALCIUM 9.2 mg/dL (8.5-10.1); MAGNESIUM 2.5 mg/dL (1.8-2.4); POTASSIUM 4.7 mmol/L (3.5-5.1)
[2019-02-11 06:45] LABS: CREATININE 5.4 mg/dL (0.7-1.3)
[2019-02-11 07:23] VITALS: BP 129/47
[2019-02-11 11:55] VITALS: BP 109/52
[2019-02-11 16:11] VITALS: BP 112/55
--- NOTE | 2019-02-11 16:30 | NUR ---
Assumed care of Pt at 0700. Pt Alert and oriented, in no acute distress. dim lung sounds on room air. sleeping for most of shift. agreeable to be turned Q2H. redness to backside. incontinent at times. isolation precautions in place. vitals stable. pt progressing toward poc goals.
[2019-02-11 19:03] VITALS: BP 108/49
[2019-02-12 03:37] VITALS: BP 139/60
--- NOTE | 2019-02-12 07:41 | NUR ---
PT MAKING SLOW PROGRESS TOWARDS GOALS. PT INCONTINENT OF URINE ONCE OVERNIGHT. DENIED ANY SOA. NO COMPLAINTS VOICED. DID REFUSE TO TAKE ATORVASTATIN. "I DON'T TAKE THAT MEDICINE."
[2019-02-12 07:53] VITALS: BP 122/52
--- NOTE | 2019-02-12 16:39 | NUR ---
WILL BE HAVING DIALYSIS TOMORROW. CONT TO BE ANURIC WITH VERY SMALL URINE OUTPUT TODAY. NO BM. TURNED Q2. KEPT CLEAN AND DRY. WILL CONT WITH PLAN OF CARE.
[2019-02-12 17:07] VITALS: BP 132/62
[2019-02-12 19:09] VITALS: BP 123/52
--- NOTE | 2019-02-12 22:24 | EKG ---
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: MORAIMA : 1935 Requested By: Mary Jo Sun Order Number: [id number] MD: Colby Medina Measurements Intervals [place] Rate: 90 P: NM: QRS: -48 QRSD: 176 T: 102 QT: 540 QTc: 661 Interpretive Statements Sinus rhythm Left bundle branch block Compared to ECG 02/06/2019 17:31:33 Electronically Signed On 02-12-2019 22:24:20 CDT by Colby Medina [email or web address] ��������������������������������������������� <ELECTRONICALLY SIGNED> ���������������������������������������� By: Colby Medina MD ��������������������������������������������� 02/12/19 2224 D: [id number] Colby Medina MD /JOSHUA
--- NOTE | 2019-02-12 22:30 | EKG ---
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 : 1935 Requested By: April Gonsales Order Number: [id number] MD: Colby Medina Measurements Intervals [place] Rate: 67 P: 65 MS: 275 QRS: -51 QRSD: 177 T: 126 QT: 483 QTc: 510 Interpretive Statements Sinus rhythm Prolonged [place] interval Left bundle branch block Compared to ECG 02/06/2019 17:31:33 Ventricular premature complex(es) no longer present Electronically Signed On 02-12-2019 22:29:55 CDT by Colby Medina [email or web address] ��������������������������������������������� <ELECTRONICALLY SIGNED> ���������������������������������������� By: Colby Medina MD ��������������������������������������������� 02/12/19 2229 4 4 Colby Mednia MD /EPI
--- NOTE | 2019-02-13 04:07 | NUR ---
No acute changes over night. Patient remains on room air. Q2H turns with barrier cream applied to bottom. Patient incontinent of bowel and urine in bed. One small smear cleaned up beginning of shift. Bed alarm on and call light within reach. Progress made toward plan of care goals.
[2019-02-13 05:17] VITALS: BP 106/53
[2019-02-13 05:35] LABS: ALBUMIN 2.9 g/dL (3.4-5.0)
[2019-02-13 08:17] VITALS: BP 138/62
--- NOTE | 2019-02-13 09:32 | HC ---
[facility] [place] [address] CONSULTATION Name: MAIA OLMEDO Room #: 359-P ADM IN M.R.#: [id number] Admission: 02/10/19 ������������������ Attend Phys: Erich Dillard MD Discharge: ������������������ Date of : 37 Report #: [id number] THIS REPORT FOR: //name// CC: Erich Dillard Nicole Guerra DATE OF SERVICE: 02/10/2019 TYPE OF REPORT: Infectious disease consultation. ATTENDING PHYSICIAN: Erich Dillard M.D. REASON FOR CONSULTATION: Previous bacteremia with Staphylococcus species. HISTORY OF PRESENT ILLNESS: An 83-year-old white man recently discharged from [place]. He is readmitted through the Emergency Room with chest pain, evaluated by cardiology services who considered the patient has not had a cardiac event. The patient's sister, brother [id number] and the patient himself providing information. He comes with some chest pain. He had previous episode of pneumonia where his coronary artery disease requiring stenting. He is on hemodialysis 3 times weekly. PAST MEDICAL HISTORY: 1. End-stage renal disease, on hemodialysis. 2. Chronic hypotension. 3. Previous episode of pneumonia. 4. Urinary tract infection. DRUG ALLERGIES: CEPHALEXIN toxin. MEDICATIONS: The patient is currently on treatment with epoetin alyx, atorvastatin, calcium carbonate, carvedilol, midodrine, isosorbide mononitrate, mineral oil petrolatum topical, cinacalcet, multivitamin, polyethylene glycol, insulin glargine, tamsulosin, docusate, clopidogrel bisulfate, sevelamer, insulin lispro per sliding scale, levothyroxine, p.r.n. acetaminophen, Atrovent and albuterol inhalation treatment, p.r.n. glucose glucagon and dialysis 3 times weekly for end-stage renal disease. SOCIAL HISTORY: Two children that do not live in town. The patient resides at local halfway. REVIEW OF SYSTEMS: Episode of chest pain and some postural hypotension, low blood pressure, particularly during hemodialysis. PHYSICAL EXAMINATION: GENERAL: Elderly white man, afebrile since admission. [facility] [address] [place] [address] CONSULTATION Name: MAIA OLMEDO Room #: 359-P ADM IN M.R.#: [id number] Admission: 02/10/19 ������������������ Attend Phys: Erich Dillard MD Discharge: ������������������ Date of : 36 Report #: [id number] VITAL SIGNS: Temperature 97.7, pulse 64, respirations 17 and BP on May 12 was 88/47 and now 138/63. HEENMT: Pupils reactive. Mouth edentulous. NECK: Supple. LUNGS: Few basilar crackles. HEART: S1 and S2. No gallop or murmur. ABDOMEN: Obese and soft. No masses or megaly. PELVIC AND RECTAL: Deferred. EXTREMITIES: No cyanosis. Pretibial edema. NEUROLOGICAL: Grossly within normal limits. LABORATORY DATA: Potassium 5.3, BUN 53, creatinine 7.9 and glucose 223. NT-pro-BNP significantly elevated, 13,307. Obviously, this is difficult to interpret in view of renal failure. Hemoglobin 8.6 g/dL. WBC normal and platelets normal. MICROBIOLOGY DATA: The blood culture on January 30 revealed coagulase-negative Staphylococcus and that was a single positive blood culture in view that both samples were obtained at the same time. The second sample has remained negative through the end. ASSESSMENT: 1. Single positive blood culture with coagulase-negative Staphylococcus, suspect contaminant. 2. Coronary artery disease, congestive heart failure, status post coronary stenting. 3. Diabetes mellitus. 4. End-stage renal disease, on chronic hemodialysis. 5. History of previous episode of pneumonia. 6. Cardiomegaly and status post coronary artery stenting. SUGGESTIONS: The patient currently not toxic looking. Doubt very much, he will benefit from antibiotics. Since not febrile, we will not repeat cultures. The patient may be discharged to snf facility. Dr. Dillard, thank you for requesting my suggestions. ��������������������������������������������� <ELECTRONICALLY SIGNED> ���������������������������������������� By: Anthony Medina MD ��������������������������������������������� 02/13/19 [id number] Anthony Medina MD /nt
[2019-02-13] MEDS ORDERED: ATORVASTATIN CA40 MG PO (11:27)
[2019-02-13] MEDS ORDERED: PROCRIT20000 UNIT SUBQ (11:27)
[2019-02-13] MEDS ORDERED: IMDUR 30 MG TAB30 M1 PO (11:27)
--- NOTE | 2019-02-13 12:28 | NUR ---
patient is to dc today to [facility], kandace ordered chart copy from [facility] medical records secretary on 3W. KANDACE called [facility] and talked to Medina in admissions letting her know patient should dc today after dialysis, orders are not in yet. We will set up transportation for patient. DP called and unit nurse is not yet sure what time dialysis will start. Dp will check back in and once dialysis starts, dp will call and inform [facility] of time.
--- NOTE | 2019-02-13 15:33 | NUR ---
Pt to d/c back to [facility] today after dialysis. According to dialysis nurse, pt will be ready to discharge after 1800. Asked information systems planner to make transport arrangements and notify facility.
[2019-02-13 17:08] VITALS: BP 130/77
[2019-02-13 17:32] LABS: HEMATOCRIT 33.3 % (42.0-52.0); MCH 32.1 pg (26.0-34.0); MCV 97.3 fL (80.0-100.0); RBC 3.42 mil/uL (4.50-6.00); RDW 15.2 % (10.5-14.5); WBC 12.5 thou/uL (4.0-11.0)
--- NOTE | 2019-02-13 18:08 | NUR ---
ASSUMED CARE OF PT AT APPROX 0700. PT IS ALERT AND ORIENTED, FORGETFUL AT TIMES. MONITORED ON TELE AND ABLE TO MAINTAIN 02 SAT >90 ON RA. DENIES SOA AND PAIN. ASSESSMENT CHARTED. PT IN DIALYSIS TODAY. TOLERATING WELL. RECIEVED ORDER FOR DC. PT STATES THAT HE IS REALLY NOT FEELING WELL AND IS NOT SURE HE IS READY TO DC. PT ASKED TO SPEAK TO . SPOKE WITH PATIENT ORDERED NEW LABS, PT WILL NOT DC TODAY. PT HAS BEEN UPDATED ON POC. WILL CONTINUE TO MONITOR.
[2019-02-13 19:10] VITALS: BP 145/54
--- NOTE | 2019-02-14 05:07 | NUR ---
Patient has been noted to be more confused than previous nights this RN has cared for William. Patient complained of pain over his whole body rating it a 10 and could give no specifics about the pain. This occured earlier in the shift, tylenol administered. Patient stated pain went away besides in his hands. Patient on room air and stated he isn't having breathing troubles. 1 large BM occurred and urine incontinence in the bed. Patient cleaned with barrier cream on skin tears that remain on his buttocks. Q2H turns which were more painful for him this evening. Call light within reach and bed in low position.
[2019-02-14 05:53] VITALS: BP 137/70
[2019-02-14 07:18] VITALS: BP 132/53
[2019-02-14 09:35] LABS: HEMATOCRIT 33.6 % (42.0-52.0); MCH 32.3 pg (26.0-34.0); MCHC 32.6 g/dL (28.0-37.0); MCV 98.8 fL (80.0-100.0); RBC 3.4 mil/uL (4.50-6.00); RDW 15.2 % (10.5-14.5); WBC 11.3 thou/uL (4.0-11.0)
[2019-02-14 09:58] LABS: CALCIUM 9.8 mg/dL (8.5-10.1); MAGNESIUM 2.5 mg/dL (1.8-2.4); POTASSIUM 4.7 mmol/L (3.5-5.1)
[2019-02-14 09:59] LABS: CREATININE 6.5 mg/dL (0.7-1.3)
--- NOTE | 2019-02-14 13:24 | NUR ---
Patient discharging today to [facility] unit notified and sister of patient that patient will be picked up today at 3;00pm by [facility]. DP called and let [facility] know the time.
--- NOTE | 2019-02-14 15:41 | NUR ---
ZACHARY reviewed chart and spoke with nursing and attending physician. Pt did not discharge yesterday. Pt stable for discharge back to [facility] today. cyber ops planner coordinated. ZACHARY met with pt at bedside to discuss discharge. Pt became tearful and stated that he is ready to stop dialysis and he verbalized that he knows that without dialysis, he will pass away within a few weeks. Pt states he left a message for his son, so he can tell him as well. SW discussed hospice services, who will provide comfort care measures once pt starts to experience symptoms without dialysis. Pt verbalized understanding. SW discussed the option of returning to [facility] and having hospice come see him at [facility]. Pt states that he does not want to return to [facility] and pass away at the facility. SW discussed inpatient hospice facilities with pt, and that he must meet admission criteria for an inpt hospice facility. Options discussed with pt. Pt requests to be evaluated for [facility]osp[facility]. ZACHARY discussed with attending physician. Discharge cancelled. Palliative care physician consulted. ZACHARY faxed clinical info to Hospice and spoke with rn liaison, Mitra. Mitra will be onsite tomorrow morning between [id number] to evaluate and meet with pt. ZACHARY updated pt at bedside, who is in agreement with plan. cyber ops planner cancelled discharge arrangements. ZACHARY is following to assist as needed with discharge planning.
--- NOTE | 2019-02-14 16:28 | NUR ---
Assumed care of patient at 0700. Vitals have been stable. Patient is alert and oriented x4, forgetful at times. Complaints of generalized pain and pain in hands, controlled with PRN Tylenol. Condom catheter placed this morning, in an attempt to collect UA to send to lab, but patient has not had any urine output this shift. Condom catheter remains in place. Stool collected and sent for occult blood; negative. Able to call for bedpan when needed. Repositioning every 2 hours, or as patient allows. Barrier cream applied to sacrum. Fall precautions in place. Plan was to discharge today, but patient is requesting hospice evaluation. Dr. Melvin consulted and [facility] to eval patient tomorrow, as patient does not want any further dialysis. Attempting to progress towards POC. Will continue to monitor.
[2019-02-14 16:35] VITALS: BP 135/65
[2019-02-14 21:00] VITALS: BP 82/47
[2019-02-15 04:19] VITALS: BP 134/54
--- NOTE | 2019-02-15 04:29 | NUR ---
PATIENT IS PROGRESSING SLOWLY IN HIS CARE PLAN. VITAL SIGNS STABLE WITH PATIENT HAVING NO COMPLAINTS OF NAUSEA. PATIENT DID COMPLAIN OF CHRONIC PAIN IN HANDS WHICH WAS TREATED EFFECTIVELY BY NURSE. FULLY ORIENTED, PATIENT HAS BEEN ABLE TO CALL APPROPRIATELY FOR NEEDS AND PARTICIPATE IN CARE. PATIENT TURNED FREQUENTLY WITH INCONTINENCE CLEANED AND SKIN PROTECTED. NURSE CHANGED CONDOM CATHETER THIS SHIFT. CONTINUE PLAN OF CARE.
[2019-02-15 06:06] LABS: ALBUMIN 3.1 g/dL (3.4-5.0); CALCIUM 9.8 mg/dL (8.5-10.1); CREATININE 7.9 mg/dL (0.7-1.3); PHOSPHORUS 4.8 mg/dL (2.5-4.9); POTASSIUM 5.1 mmol/L (3.5-5.1)
[2019-02-15 07:31] VITALS: BP 133/78
--- NOTE | 2019-02-15 10:43 | NUR ---
ZACHARY reviewed chart and spoke with nursing. furniture detailer liaison evaluated pt this morning. Pt does not meet admission criteria for the hospice house at this time. furniture detailer will re-evaluate pt tomorrow. Pt's last dialysis was on Wednesday, 02/13. Pt signed outside the hospital DNR form. ZACHARY met with pt at bedside to provide update and discuss plan. Pt states his sister and son will be here today to visit with him and he will discuss the hospice house with them. ZACHARY is following to assist as needed with discharge planning.
[2019-02-15 16:18] VITALS: BP 138/78
--- NOTE | 2019-02-15 18:39 | NUR ---
ASSUMED CARE OF PT AT 0700. PT HAS BEEN A&Ox4, FORGETFUL AT TIMES. PT AND PT'S FAMILY MET WITH HOSPICE HOUSE LIASION TODAY TO DISCUSS ENDING DIALYSIS AND TRANSITIONING TO HOSPICE CARE. PATIENT REFUSED TODAY'S DIALYSIS. ALSO REFUSED SHORT-ACTING INSULIN. SMALL SMEAR OF BM NOTED ON AFTERNOON TURN. Q2H TURNS PROVIDED OR PATIENT ALLOWS/REQUESTS. HOSPICE HOUSE WILL FOLLOW UP WITH AND REEVALUATE PT TOMORROW TO SEE IF PT QUALIFIES FOR ADMISSION. DNR ORDER SIGNED. WILL CONTINUE TO MONITOR AND ASSESS.
[2019-02-15 19:17] VITALS: BP 109/54
--- NOTE | 2019-02-16 04:05 | NUR ---
PATIENT IS PROGRESSING IN HIS CARE PLAN. VITAL SIGNS STABLE WITH PATIENT HAVING NO COMPLAINTS OF NAUSEA. PATIENT DID COMPLAIN OF PAIN IN HANDS WHICH WAS EFFECTIVELY TREATED WITH MEDICATIONS AND NON PHARMACOLOGICAL INTERVENTION. FULLY ORIENTED, PATIENT IS ABLE TO CALL APPROPRIATELY FOR REQUESTS. INCONTINENCE CLEANED WITH SKIN CARE PROVIDED, PATIENT WAS OFFERED FREQUENT TURNS. NUTRITION PROVIDED PER PATIENTS REQUEST. NURSE HAD LONG CONVERSATION WITH PATIENT ABOUT DECISION TO GO INTO HOSPICE. WHILE SAD, PATIENT IS ADAMANT THAT THIS IS "THE RIGHT DECISION" AND NO LONGER WANTS TO GO THROUGH HOSPITALIZATIONS OF LIVE AT CURRENT FACILITY. PLAN IS FOR PATIENT AND FAMILY TO MEET WITH DOCTOR TODAY TO FURTHER DISCUSS OPTIONS. CONTINUE PLAN OF CARE.
[2019-02-16 04:10] VITALS: BP 103/51
[2019-02-16 08:17] VITALS: BP 124/53
--- NOTE | 2019-02-16 13:07 | NUR ---
ZACHARY reviewed chart and spoke with nursing and attending physician. Hospice wiener packer to re-evaluate pt today for admission to the hospic house. Awaiting input at this time. ZACHARY is following to assist as needed with discharge planning.
[2019-02-16 16:14] VITALS: BP 119/57
--- NOTE | 2019-02-16 18:33 | NUR ---
Assumed care of patient at 0700. Vitals have been stable. Alert and oriented x4, somewhat forgetful at times. Complaints of generalized pain and pain in hands - controlled with PRN medications. Repositioning every couple hours and frequent barrier cream applied. Condom catheter remains in place; patient did ask to remove condom catheter this evening for comfort. Son at bedside throughout day and attentive to patient. Hospice house back for evaluation today. Not able to discharge at this time but will be back tomorrow morning. Patient seems to be accepting of discharging to hospice and the plan of care. Progressing towards POC. Will continue to monitor.
[2019-02-16 19:20] VITALS: BP 146/56
[2019-02-16 22:16] LABS: URINE BILIRUBIN NEGATIVE (Negative); URINE BLOOD 3+ (Negative); URINE CLARITY CLOUDY; URINE COLOR YELLOW; URINE GLUCOSE-RANDOM* NEGATIVE (Negative); URINE KETONES NEGATIVE (Negative); URINE NITRITE-REFLEX NEGATIVE (Negative); URINE PROTEIN (DIPSTICK) 2+ (Negative); URINE SPECIFIC GRAVITY 1.015 (1.005-1.035); URINE UROBILINOGEN 0.2 E.U./dl (0.2-1.0)
[2019-02-16 22:22] LABS: URINE LEUKOCYTES-REFLEX 3+ (Negative)
[2019-02-16 22:26] LABS: CASTS None Seen /LPF (None Seen); CRYSTALS None Seen /LPF (None Seen); MUCUS 0-3 Light strn/LPF (None Seen); SQUAMOUS 0-3 Few /LPF (0-3); URINE RBC 3-10 Few /HPF (0-2); URINE WBC-REFLEX >25 Many /HPF (0-5); WBC CLUMPS Packed (None Seen)
--- NOTE | 2019-02-17 03:08 | NUR ---
SLEPT MOST OF SHIFT. TURNED FOR COMFORT NEEDED. STRAIGHT CATH FOR UA DUE TO COMPLAINTS OF BURNING WITH URINATION. URINE CLOUDY AND FOUL SMELLING. UA + FOR INFECTION, ORDERS RECIEVED FOR IV ANTIBIOTICS. MOROPHINE GIVEN IV FOR COMPLAINTS OF PAIN. PROGRESSING TOWARDS DISCHARGE GOALS TO HOSPICE HOUSE. WORKING ON GOALS AND PLAN OF CARE FOR NOC. CONTINUE TO ASSES CLOESLY.
[2019-02-17 04:20] VITALS: BP 136/70
[2019-02-17 07:45] VITALS: BP 123/70
--- NOTE | 2019-02-17 09:37 | NUR ---
Nutrition: plan to transition to hospice house noted. Pt no longer wants dialysis, palliative care consult. Diet has been appropriately liberalized to regular. Place as low risk.
--- NOTE | 2019-02-17 09:50 | NUR ---
ZACHARY reviewed chart and spoke with hotel maintenance engineer, who states that the [facility] will hopefully have a bed for pt today. Pt has had a change in condition overnight. Pt with shortness of breath and has been started on IV pain meds. ZACHARY is following to assist as needed with discharge planning.
[2019-02-17 11:20] VITALS: BP 126/55
--- NOTE | 2019-02-17 14:36 | NUR ---
ZACHARY reviewed chart and spoke with nursing and attending physician. ZACHARY discussed case with [facility] RN, who states remains appropriate for the [facility]. Pt is first on the waiting list at this time. [facility] ambulance form placed on pt's chart for when a room is available. Outside the Hospital DNR form on pt's chart for transport. Discharge orders/summary will need to be faxed when finalized. Nursing to call report prior to pt's discharge. [facility] form to be faxed and then call to arrange ambulance. SW is available to assist as needed. [facility]--
[2019-02-17 15:15] VITALS: BP 144/63
--- NOTE | 2019-02-17 18:21 | NUR ---
Assumed care of PT at 0700. alert and oriented. sluggish mentation. family at bedside. comfort measures in place. changed to med surg. hospice eval today - no beds available today - anticipating d/c to hospice house tomorrow. repositioned for comfort. denies need for pain meds. son at bedside throughout shift. will cont to monitor.
[2019-02-17 19:35] VITALS: BP 124/59
[2019-02-18 03:57] VITALS: BP 104/63
--- NOTE | 2019-02-18 05:35 | NUR ---
PATIENT IS ALERT AND ORIENTED. PATIENT HAS RT [facility]IAL[facility] MWF (CURRENTLY NOT DOING). PATIENT IS BED BOUND. Q2 TURN. PATIENT IS COMFORT CARE. TURN ONLY PER COMFORT. PATIENT DENIES PAIN. PATIENT ON 2L NC PER COMFORT. PATIENT IS MEDSURG. BARRIER CREAM APPLIED TO COCCYX. PATIENT HAD SLIGHT TEMP 99.6 TYLENOL GIVEN. PATIENT IS PENDING HOSPICE TODAY. PATIENT IS DNR. PATIENT HAS CONDOM CATH. OLIGURIA. PATIENT IS RESTING COMFORTABLY IN BED. WCM. PATIENT IS PROGERSSING TO COMFORT GOALS.
[2019-02-18 08:53] VITALS: BP 124/49
[2019-02-18] MEDS ORDERED: MORPHINE SULFAT15 M3 PO (13:52)
[2019-02-18] MEDS ORDERED: ATIVAN0.5 MG PO (13:52)
--- NOTE | 2019-02-18 16:41 | NUR ---
Assumed care of Pt at 0700. Pt oriented, but increasingly sluggish mentation. comfort measures. repositioned for comfort. transfered to hospice house. Son at bedside. All concerns addressed.
== END 2019-02-18 16:14 | disposition hospice, inpatient (51) | DRG 280 ==
LOC: ER 23:35 → EROBS 02-10 02:04 → 3W 02-10 02:04
PROVIDERS: Emergency Medicine; Internal Medicine Nephrology; Nurse Practitioner Acute Care; ADMIT Internal Medicine
PROC: 5A1D70Z Performance of Urinary Filtration, Intermittent, Less than 6 Hours Per Day (ICD-10-PCS; principal; 2019-02-10)
PROC: 5A1D70Z Performance of Urinary Filtration, Intermittent, Less than 6 Hours Per Day (ICD-10-PCS; 2019-02-13)
PROC: 5A1D70Z Performance of Urinary Filtration, Intermittent, Less than 6 Hours Per Day (ICD-10-PCS; 2019-02-15)
DX: I21.4 Non-ST elevation (NSTEMI) myocardial infarction (principal); J18.9 Pneumonia, unspecified organism; N18.6 End stage renal disease; J96.01 Acute respiratory failure with hypoxia; I50.43 Acute on chronic combined systolic (congestive) and diastolic (congestive) heart failure; I13.2 Hypertensive heart and chronic kidney disease with heart failure and with stage 5 chronic kidney disease, or end stage renal disease; E11.22 Type 2 diabetes mellitus with diabetic chronic kidney disease; E03.9 Hypothyroidism, unspecified; Z96.653 Presence of artificial knee joint, bilateral; E11.51 Type 2 diabetes mellitus with diabetic peripheral angiopathy without gangrene; I25.10 Atherosclerotic heart disease of native coronary artery without angina pectoris; I25.5 Ischemic cardiomyopathy; E87.70 Fluid overload, unspecified; D63.1 Anemia in chronic kidney disease; D72.829 Elevated white blood cell count, unspecified; Z51.5 Encounter for palliative care; E88.09 Other disorders of plasma-protein metabolism, not elsewhere classified; E55.9 Vitamin D deficiency, unspecified; E66.01 Morbid (severe) obesity due to excess calories; Z68.38 Body mass index [BMI] 38.0-38.9, adult; Z90.49 Acquired absence of other specified parts of digestive tract; Z88.7 Allergy status to serum and vaccine; Z88.8 Allergy status to other drugs, medicaments and biological substances; Z95.5 Presence of coronary angioplasty implant and graft; Z87.891 Personal history of nicotine dependence; Z91.19 Patient's noncompliance with other medical treatment and regimen; Z95.2 Presence of prosthetic heart valve
CPT/HCPCS: 10879; 32100